=== PATIENT | female | born 1970 | race Caucasian/White ===

== ENCOUNTER → 2017-12-25 08:05 | Outpatient (CLI) | payer BC, SELFPAY ==
--- NOTE | 2017-12-25 13:13 | NEURO ---
NCS and/or EMG Patient Report Ordering Doctor: Salomón Mosquera DATE OF SERVICE: 12/25/17 This is a bilateral upper extremity nerve conduction study and a right upper extremity EMG performed on this 47-year-old female who is right-handed with a one year history of symptoms worse on the right including burning and tingling in the first 3 digit of the hand. There is no neck pain and she is healthy otherwise. Bilateral upper extremity sensory and motor nerve conduction studies are performed. The median motor and sensory distal latencies bilaterally are prolonged more so on the right, with mild reduction of amplitudes on the right side and mild bilateral reduction of conduction velocities. The ulnar motor and sensory and radial sensory responses are normal. The median F-wave latencies are bilaterally prolonged compared to the ulnar F wave latencies, worse on the right side. Right upper extremity needle electromyography is performed. Muscles evaluated included the first dorsal interosseous, abductor pollicis brevis, brachioradialis, biceps, triceps and deltoid muscles. The abductor pollicis brevis muscle did demonstrate large motor units in early recruitment but spontaneous pathologic activity was absent. All other muscles demonstrated normal insertional activity with absence of pathologic spontaneous activity. Motor unit potential recruitment pattern and amplitude was normal in all muscles tested. Impression: This is an abnormal electrophysiologic study consistent with moderate to severe carpal tunnel syndrome bilaterally at the wrists worse on the right side.
== END ==
LOC: PSN 08:07
PROVIDERS: Family Provider Family Medicine; PCP Family Medicine; Referring Provider Physician Assistant; Visit Provider Physician Assistant
DX: R20.2 Paresthesia of skin (principal)
CPT/HCPCS: 95886; 95911

== ENCOUNTER 2020-06-06 20:15 | Emergency (ER) | payer OTHER, SELFPAY ==
[2020-06-06 20:16] VITALS: BP 164/99; PULSE 89; RESP 16; TEMP 36.8; O2SAT 97; BMI 36.0
--- NOTE | 2020-06-06 20:26 | CT_ITS ---
STUDY: CT ABDOMEN AND PELVIS WITHOUT CONTRAST REASON FOR EXAM: Female, 50 years old. Rt flank pain RADIATION DOSAGE (If Supplied By Facility): CTDIvol = ( 21.14 ) mGy, DLP = ( 1034.92 ) mGycm TECHNIQUE: Transaxial images were obtained from the dome of the diaphragm to the symphysis pubis without oral contrast, and without intravenous contrast. Sagittal and coronal images were reconstructed. Individualized dose optimization techniques were used for this CT. COMPARISON: None. FINDINGS: The visualized lung bases are unremarkable. The visualized portions of the heart are within normal limits. The lack of intravenous contrast limits evaluation of solid visceral organs. There is decreased attenuation of the liver consistent with steatosis. There are surgical clips in the gallbladder fossa consistent with a prior cholecystectomy. Normal spleen. Normal pancreas. Normal bilateral adrenal glands. There is right perinephric stranding and hydronephrosis. No radiopaque obstructing calculus is visualized. Normal left kidney. Normal visualized stomach. Normal small intestine. Normal colon. The appendix is visualized and appears normal. Normal abdominal aorta. Normal inferior vena cava. Normal retroperitoneum. Normal urinary bladder. Normal abdominal wall. There are diffuse degenerative changes of the visualized lumbar spine. CT/Abdomen/Pelvis without Cont IMPRESSION: Right perinephric stranding associated with hydronephrosis, may be secondary to recent passage of a calculus, a radiolucent obstructing calculus or possibly an infectious process. Fatty infiltration of the liver. Electronically Signed: Radha Castro MD at 21:13 EDT Tel , Service support ,
--- NOTE | 2020-06-06 20:27 | ED.VIS.GEN ---
History of Present Illness Chief Complaint: Flank Pain Informant: Patient Onset: Today Current Severity: Moderate Maximum Severity: Moderate Narrative: Patient presents with right flank pain that started at 5 AM this morning. She states pain seems to come and go. It does seem worse when she pushes on her right lower back. She has vomited multiple times. She is been unable to keep down any pain medication. She states it reminds her of her gallbladder attacks but she has had a prior cholecystectomy. Past Medical History - Allergies and Home Meds Allergies/Adverse Reactions: Allergies No Known Allergies Allergy (Verified 06/06/20 20:19) Primary Care Physician: Vaibhav Carl MD [Primary Care Provider] - Past Medical History: None Surgical History: cholecystectomy, - - Cardiac ablation, carpal tunnel Lives: Spouse/ Significant Other Smoking Status: Never smoker Review of Systems General: Denies: Chills, Fever Eyes: Denies: Visual changes - bilaterally ENT: Denies: Bilateral ear pain Cardiovascular: Denies: Chest pain, Palpitations Respiratory: Denies: Dyspnea, Cough Gastrointestinal: Reports: Abdominal pain, Nausea, Vomiting Genitourinary: Denies: Dysuria Musculoskeletal: Reports: Back pain. Denies: Swelling, Extremity Pain Skin: Denies: Rash Neurological: Denies: Headache Hematologic: Denies: Easy bruising, Easy bleeding Allergy: Denies: Uticaria Physical Exam Vital Signs/Narrative: Vital Signs Temp Pulse Resp BP Pulse Ox 06/06/20 20:16 98.2 F 89 16 164/99 H 97 Inital Vital Signs reviewed: Yes General: Well nourished, Well developed Head: Normocephalic Neck: Supple Cardiovascular: Regular rate, Regular rhythm Respiratory: No distress, CTA bilaterally Abdomen: Soft, Nontender, Hypoactive bowel sounds Skin: Normal color Neurological: Alert, Oriented x3 Psychological: Normal affect Diagnostic/Tx/Re-eval Impressions Abdomen/Pelvis CT 06/06/20 20:26 IMPRESSION: Right perinephric stranding associated with hydronephrosis, may be secondary to recent passage of a calculus, a radiolucent obstructing calculus or possibly an infectious process. Fatty infiltration of the liver. Electronically Signed: Radha Castro MD at 21:13 EDT Tel , Service support , 06/06/20 20:26 Abdomen/Pelvis without Cont [CT] Stat Laboratory Results 06/06/20 06/06/20 06/06/20 20:45 20:45 20:45 WBC 10.6 RBC 4.73 Hgb 13.9 Hct 42.4 MCV 89.6 MCH 29.4 MCHC 32.8 RDW Std Deviation 45.9 H RDW Coeff of Juan Jose 14.2 Plt Count 221 MPV 12.0 Immature Gran % (Auto) 0.400 Neut % (Auto) 83.8 H Lymph % (Auto) 9.5 L [place] % (Auto) 5.9 Eos % (Auto) 0.1 Baso % (Auto) 0.3 Absolute Neuts (auto) 8.9 H Absolute Lymphs (auto) 1.00 Nucleated RBC % 0 Sodium 141 Potassium 3.7 Chloride 108 H Carbon Dioxide 23.0 Anion Gap 10 BUN 28 H Creatinine 1.06 H Estim Creat Clear Calc 62.43 Est GFR (MDRD) Af Amer 71 Est GFR (MDRD) Non-Af 59 L BUN/Creatinine Ratio 26.4 H Glucose 108 H Calcium 9.1 Total Bilirubin 0.60 Direct Bilirubin 0.17 AST 28 ALT 56 Alkaline Phosphatase 109 Total Protein 8.5 H Albumin 4.0 Globulin 4.5 H Urine Color Yellow Urine Clarity Sl. Cloudy Urine pH 5.0 Ur Specific [place] 1.025 Urine Protein 30 H Urine Glucose (UA) Normal Urine Ketones 50 H Urine Occult Blood 250 H Urine Nitrite Negative Urine Bilirubin Negative Urine Urobilinogen Normal Ur Leukocyte Esterase 25 H Urine RBC 25-50 SEEN Urine WBC 5-10 SEEN Ur Squamous Epith Cells 0-5 SEEN Amorphous Sediment 1+ URATE Urine Bacteria 0 SEEN Urine Mucus 3+ - Medical Decision Making Patient was given morphine, Toradol, Zofran, and IV fluids. On repeat evaluation pain is improved. CBC and chemistry studies largely unremarkable. Urinalysis does reveal blood with no sign of infection. CT scan reveals hydronephrosis on the right. No radiopaque stone is seen. This likely represents either a recently passed stone or a radiolucent stone. On repeat exam patient states the pressure in her right upper quadrant was starting to return. She was redosed with morphine and Zofran. Test results discussed with her at length. Patient be treated with home medications. If pain persists over the next several days she will follow-up with Dr. Bueno. She was encouraged to return to the emergency room for worsening symptoms or any concerns. Patient voices understanding and agreement. ED Disposition - Plan for ED Patient: Disposition: Home or Assisted Living Diagnosis: Ureterolithiasis Instructions: ED Kidney Stone w/ Colic Prescriptions: Hydrocodone Bitart/Apap 5-325 [[place] 5MG-325MG] 1 tablet PO Q6H PRN PRN 3 Days #10 tablet PRN Reason: Pain Ketorolac [Toradol] 10 mg PO Q6H PRN #14 tablet PRN Reason: Pain Score 4-10 Ondansetron [Zofran Odt] 4 mg PO Q8H PRN PRN #10 tablet PRN Reason: Nausea Referrals: Shay Bueno MD [STAFF PHYSICIAN] - 3-5 Days if not improving
[2020-06-06] MEDS: 0.9% Normal Saline 1,000 ML 150 ML IV (20:41)
[2020-06-06] MEDS: Ondansetron 4 MG/2 ML Vial IV ×2 (20:41→21:38)
[2020-06-06] MEDS: Morphine 4 MG/ML Syringe IV ×2 (20:41→21:38)
[2020-06-06] MEDS: Ketorolac 30 MG/ML Syringe IV (20:42)
[2020-06-06 20:53] LABS: Bacteria 0 SEEN /hpf (None Seen)
[2020-06-06 20:55] LABS: Color, Urine Yellow (Yellow); Glucose, Dipstick Normal (Normal); Ketone-Dipstick 50 mg/dl (Negative); Leukocyte Esterase-Dipstick 25 /ul (Negative); Nitrite-Dipstick Negative (Negative); Occult Blood-Urine 250 /ul (Negative); Protein-Dipstick 30 mg/dl (Negative); Specific Gravity, Urine 1.025 (1.002-1.030); Urine Bilirubin Dipstick Negative (Negative); Urine Clarity Sl. Cloudy (Clear); Urine Urobilinogen Normal (Normal)
[2020-06-06 20:57] LABS: Absolute Neutrophil Count 8.9 X10^3/uL (2.0-7.7); Basophil# 0.03 X10^3/uL; Basophil% 0.3 % (0-1); Eosinophil# 0.01 X10^3/uL; Eosinophils% 0.1 % (0-5); Hematocrit 42.4 % (37-47); Hemoglobin 13.9 g/dL (12.0-15.0); Lymphocyte % 9.5 % (19-41); Mean Corp Hgb Conc 32.8 g/dL (32-36); Mean Corpuscular Hgb 29.4 pg (27.0-32.0); Mean Corpuscular Volume 89.6 fL (81-99); Monocyte# 0.62 X10^3/uL; Monocyte% 5.9 % (0-10); NRBC Flagged by Analyzer 0 % (0-5); Neutrophil # 8.87 X10^3/uL (2.7-7.7); Neutrophil % 83.8 % (47-70); Platelet Count 221 K/mm3 (150-450); RBC Distribution Width CV 14.2 % (11.6-14.6); RBC Distribution Width SD 45.9 fl (35.1-43.9); Red Blood Count 4.73 M/mm3 (4.2-5.4); White Blood Count 10.6 K/mm3 (4.4-11.0)
[2020-06-06 21:06] LABS: Amorphous Sediment 1+ URATE; Mucous, Urine 3+ /hpf (<or=2+); Red Blood Cells-Urine 25-50 SEEN /hpf (0-5); Squamous Epithelial Cells - UA 0-5 SEEN /hpf (5-10); White Blood Cells 5-10 SEEN /hpf (0-5)
[2020-06-06 21:13] LABS: AST(SGOT) 28 U/L (15-37); Alanine Aminotransfer ALT/SGPT 56 U/L (13-56); Alkaline Phosphatase 109 U/L (45-117); Anion Gap 10 (5-15); BUN 28 mg/dL (7-18); BUN/Creat Ratio 26.4 RATIO (10-20); Bilirubin, Direct 0.17 mg/dL (0.00-0.30); Calcium,Total 9.1 mg/dL (8.5-10.1); Chloride 108 mmol/L (98-107); Creatinine, Serum 1.06 mg/dL (0.55-1.02); EST Glomerular Filtration Rate 59 mL/min (>60); Est Glom Filt Rate - Afr Amer 71 mL/min (>60); Estimated Creatinine Clearance 62.43 ml/min; Globulin 4.5 g/dL (2.2-4.2); Glucose 108 mg/dL (74-106); Potassium 3.7 mmol/L (3.5-5.1); Protein, Total 8.5 g/dL (6.4-8.2); Sodium Level 141 mmol/L (136-145)
[2020-06-06 22:26] VITALS: BP 134/72; PULSE 65; RESP 12; O2SAT 98
== END 2020-06-06 22:27 | disposition home or self-care (01) ==
PROVIDERS: Emergency Provider Emergency Medicine; PCP Family Medicine
DX: N20.1 Calculus of ureter (principal); Z90.49 Acquired absence of other specified parts of digestive tract
CPT/HCPCS: 74176; 80048; 80076; 81001; 85025; 96361; 96374; 96375; 96376; 99283; J7030; A4216; J2405

== ENCOUNTER 2023-10-22 16:16 | Inpatient (IN) | payer BC, SELFPAY ==
[2023-10-22] VITALS (7 sets, daily range): BP systolic 115–131; BP diastolic 61–85; PULSE 57–65; RESP 13–18; TEMP 36.6–36.9; O2SAT 97–100; BMI 33.4; BMI 32.2
--- NOTE | 2023-10-22 16:40 | CT_ITS ---
EXAM: CT ANGIOGRAPHY CHEST, ABDOMEN AND PELVIS WITH INTRAVENOUS CONTRAST CLINICAL INDICATION: chest/abdominal pain TECHNIQUE: Helically acquired angiography images were obtained of the chest, abdomen and pelvis with intravenous contrast. This CT exam was performed using one or more of the following dose reduction techniques: automated exposure control, adjustment of the mA and/or kV according to patient size, and/or use of iterative reconstruction technique. MIP reconstructed images were created and reviewed. CONTRAST: IV 100mL Isovue-370 COMPARISON: No relevant prior studies available. FINDINGS: VASCULATURE: AORTA: No acute findings. Normal in caliber. No dissection. PULMONARY ARTERIES: Unremarkable. Normal in caliber. No obvious central pulmonary embolism although this study was not performed with the pulmonary embolism protocol. GREAT VESSELS OF AORTIC ARCH: Unremarkable. Normal in caliber. No dissection. CELIAC TRUNK AND MESENTERIC ARTERIES: No acute findings. No occlusion or significant stenosis. No dissection. RENAL ARTERIES: No acute findings. No occlusion or significant stenosis. No dissection. ILIAC ARTERIES: No acute findings. No occlusion or significant stenosis. No dissection. CHEST: LUNGS AND PLEURAL SPACES: Unremarkable. No mass. No consolidation or edema. No pleural effusion or thickening. No pneumothorax. HEART: Unremarkable. Heart size is normal. No pericardial effusion. MEDIASTINUM: Unremarkable. No mediastinal or hilar adenopathy. Esophagus is unremarkable. No hiatal hernia. THYROID: Unremarkable. No thyroid lesions. ABDOMEN: LIVER: Unremarkable. Homogeneous. No focal mass. GALLBLADDER AND BILE DUCTS: There are surgical clips from a cholecystectomy. No intra- or extrahepatic biliary ductal dilation. PANCREAS: Unremarkable. No focal cystic or solid mass. SPLEEN: Unremarkable. Normal size without focal cystic or solid mass. ADRENALS: Unremarkable. No nodules. KIDNEYS AND URETERS: Unremarkable. Normal renal size and position. No hydronephrosis. STOMACH AND BOWEL: Unremarkable. No stomach or bowel distention. No focal inflammatory change. PELVIS: APPENDIX: No evidence of acute appendicitis. BLADDER: Unremarkable. REPRODUCTIVE: Unremarkable as visualized. No mass. CHEST, ABDOMEN and PELVIS: INTRAPERITONEAL SPACE: Unremarkable. No ascites or other fluid collection. No free air. BONES/JOINTS: Unremarkable. No suspicious lytic or blastic abnormality. SOFT TISSUES: Unremarkable. No discrete abdominal or pelvic wall hernia. LYMPH NODES: Unremarkable. No enlarged lymph nodes. CT/CTA Chst, Abd, Pel W and/or WO IMPRESSION: No acute findings in the visualized arteries of the chest, abdomen or pelvis. Electronically Signed: Mendel De Guzman MD at 17:34 EDT ,
--- NOTE | 2023-10-22 16:41 | EDS_ITS ---
HPI HPI - GI History of Present Illness Chief Complaint: Abd Pain Narrative Narrative: 53-year-old female presenting with severe epigastric pain. Patient states that she had a few episodes of this last week while she was on the phone with her and notes it did not last very long. It is not related to food. Patient has history of cholecystectomy. Patient states that she was working at the [employer] today and she would get severe pain in the epigastric region that lasted 15 minutes at a time initially. She reports 3 episodes of this where her arms went limp with the pain. She states that the last one lasted 25 minutes and again her arms went weak. Patient states she was very anxious and she might have been hyperventilating. She did feel lightheaded. PFSH PFSH Home Medications ?Medication ?Instructions ?Recorded ?Last Taken ?Type NK 10/22/23 Unknown History Allergy/AdvReac Type Severity Reaction Status Date / Time No Known Allergies Allergy Verified 10/22/23 16:18 Surgical History H/O prior ablation treatment Social History (Updated 10/22/23 @ 20:[address] Dennis Phillips DO) Smoking Status: Never smoker substance use type: marijuana ROS ROS ED Constitutional Constitutional ED: Denies chills, fever(s) or sweats Eyes Eyes: Denies blurry vision or change in vision ENT ENT ED: Denies ear pain or sore throat Cardiovascular Cardiovascular: Reports chest pain and other Details: Lightheadedness ; Denies palpitations or racing heartbeat Respiratory/Chest Respiratory/Chest: Denies cough, dyspnea or sputum Gastrointestinal Gastrointestinal: Reports abdominal pain; Denies constipation, diarrhea, nausea or vomiting Genitourinary Genitourinary ED: Denies dysuria, hematuria or urinary frequency Musculoskeletal Musculoskeletal: Denies arthralgias, myalgias or neck pain Integumentary Denies abscess, Abrasions or rash Neurologic Neurologic: Denies headache(s), paresthesias or weakness Psychiatric Psychiatric: Denies anxiety, depression, suicidal ideation or suicidal thoughts Endocrine Endocrinology: Denies polydipsia or polyuria EXAM Physical Exam Const Vital Signs: 10/22/23 16:17 10/22/23 16:27 10/22/23 17:27 Temperature 98.3 F 98.3 F 98.4 F Temperature Source Oral Oral Oral Pulse Rate 64 64 62 Respiratory Rate 16 16 13 Blood Pressure 129/77 H 129/77 H 123/74 H Blood Pressure Mean 94 94 90 Pulse Ox 99 99 100 Oxygen Delivery Method Room Air Room Air Room Air 10/22/23 18:17 10/22/23 20:00 10/22/23 20:12 Temperature 97.9 F Temperature Source Pulse Rate 60 65 61 Respiratory Rate 18 16 16 Blood Pressure 131/78 H 119/85 H 115/61 Blood Pressure Mean 95 96 79 Pulse Ox 97 100 97 Oxygen Delivery Method Room Air Room Air Positive well nourished General Appearance ED: NAD; Negative for pallor HEENT Reports moist mucous membranes normocephalic Eyes PERRL and EOMs intact bilaterally Resp normal respiratory effort and clear to auscultation bilaterally Auscultation: Negative for rales, rhonchi or wheezes Cardio regular rate and regular rhythm GI GI Narrative: Minimally tender epigastric region. Extremity General Extremety ED: Negative for edema or tenderness General Extremity: Negative for edema Neuro CN's II-XII intact bilaterally Sensorium / Orientation: alert Motor Exam: strength 5/5 throughout Psych mental status grossly normal Skin General Skin Exam: Negative for jaundice or pallor MDM MDM MDM Narrative Medical decision making narrative: Patient presenting with epigastric pain. Differential includes colitis, diverticulitis, gastritis, pancreatitis, constipation, UTI, pyelonephritis, renal calculi, ureteral calculi, bowel obstruction, malignancy, dehydration, electrolyte abnormalities, differential includes but is not limited to ACS, aortic dissection, pneumonia, pneumothorax, muscle strain, costochondritis. High-sensitivity troponin and EKG will be obtained. CBC will be obtained to assess white blood cell count, hemoglobin, platelets. CMP to assess renal function, electrolytes, liver function, glucose. Lipase to assess for pancreatitis. Urinalysis to assess for UTI. Patient was medicated with morphine and Zofran. Patient has normal white blood cell count 6.5. Hemoglobin 13.6. Platelets are normal at 181. Renal function and electrolytes within normal limits. Total bilirubin is normal however her AST is 99 ALT 63 and her lipase is 157. Previously noted these were normal. CTA of the chest abdomen pelvis was obtained and did not show anything acute. EKG interpreted by myself shows a sinus rhythm at 68 bpm without sign of ischemic change or dysrhythmia. I discussed the lab findings with Dr. Kahn and he recommended an ultrasound of the right upper quadrant to see if we could see the ducts better and this did identify a 1.6 cm dilated, bile duct. He recommended admission for MRCP. Discussed with the hospitalist. Impression: 1. Abdominal pain 2. Dilated common bile duct Lab Data Attestation: I reviewed the patient's lab results. Labs: Laboratory Results - last 24 hr 10/22/23 10/22/23 16:03 17:58 WBC 6.5 RBC 4.73 Hgb 13.6 Hct 42.0 MCV 88.8 MCH 28.8 MCHC 32.4 RDW Std Deviation 42.4 RDW Coeff of Juan Jose 13.0 Plt Count 181 MPV 12.0 Immature Gran % (Auto) 0.200 Neut % (Auto) 57.6 Lymph % (Auto) 36.0 [place] % (Auto) 4.6 Eos % (Auto) 0.8 Baso % (Auto) 0.8 Absolute Neuts (auto) 3.7 Absolute Lymphs (auto) 2.33 Nucleated RBC % 0 Sodium 139 Potassium 3.5 Chloride 109 H Carbon Dioxide 25.0 Anion Gap 5 BUN 24 H Creatinine 0.76 Estim Creat Clear Calc 103.45 Est GFR (MDRD) Af Amer 102 Est GFR (MDRD) Non-Af 84 BUN/Creatinine Ratio 31.4 H Glucose 107 H Calcium 9.2 Total Bilirubin 0.40 Direct Bilirubin 0.15 AST 99 H ALT 63 H Alkaline Phosphatase 94 Troponin I High Sens 4 5 Total Protein 8.4 H Albumin 3.9 Globulin 4.5 H Lipase 157 H Radiography Diagnostic Testing: Clinical Impression(s) from Imaging Studies Chest/Abdomen/Pelvis CTA 10/22/23 16:40 IMPRESSION: No acute findings in the visualized arteries of the chest, abdomen or pelvis. Electronically Signed: Mendel De Guzman MD at 17:34 EDT , Gallbladder Ultrasound 10/22/23 18:40 IMPRESSION: Status post cholecystectomy no acute abnormalities. Electronically Signed: Mendel De Guzman MD at 19:47 EDT , Discharge Plan Triage Chief Complaint: Abd Pain ED Provider: Kenan Yuen Dx/Rx/DC Orders Primary Care Provider: Vaibhav Carl
[2023-10-22] MEDS: 0.9% Normal Saline (1000mL) 1,000 ML 999 ML IV (16:42)
[2023-10-22] MEDS: Morphine 4 MG/ML Syringe IV ×2 (16:42→18:48)
[2023-10-22] MEDS: Ondansetron 4 MG/2 ML Vial IV (16:42)
[2023-10-22 16:54] LABS: Absolute Lymphocyte Count 2.33 X10^3/uL (0.83-4.51); Absolute Neutrophil Count 3.7 X10^3/uL (2.0-7.7); Basophil# 0.05 X10^3/uL; Basophil% 0.8 % (0-1); Eosinophil# 0.05 X10^3/uL; Eosinophils% 0.8 % (0-5); Hemoglobin 13.6 g/dL (12.0-15.0); Lymphocyte # 2.33 X10^3/ul (0.83-4.51); Mean Corp Hgb Conc 32.4 g/dL (32-36); Mean Corpuscular Hgb 28.8 pg (27.0-32.0); Mean Corpuscular Volume 88.8 fL (81-99); Monocyte% 4.6 % (0-10); NRBC Flagged by Analyzer 0 % (0-5); Neutrophil # 3.73 X10^3/uL (2.7-7.7); Neutrophil % 57.6 % (47-70); Platelet Count 181 K/mm3 (150-450); RBC Distribution Width SD 42.4 fl (35.1-43.9); Red Blood Count 4.73 M/mm3 (4.2-5.4); White Blood Count 6.5 K/mm3 (4.4-11.0)
[2023-10-22 17:01] LABS: AST(SGOT) 99 U/L (15-37); Alanine Aminotransfer ALT/SGPT 63 U/L (13-56); Albumin, Serum 3.9 g/dL (3.2-5.0); Alkaline Phosphatase 94 U/L (45-117); Anion Gap 5 (5-15); BUN 24 mg/dL (7-18); BUN/Creat Ratio 31.4 RATIO (10-20); Bilirubin, Direct 0.15 mg/dL (0.00-0.30); Calcium,Total 9.2 mg/dL (8.5-10.1); Chloride 109 mmol/L (98-107); Creatinine, Serum 0.76 mg/dL (0.55-1.02); EST Glomerular Filtration Rate 84 mL/min (>60); Est Glom Filt Rate - Afr Amer 102 mL/min (>60); Estimated Creatinine Clearance 103.45 ml/min; Globulin 4.5 g/dL (2.2-4.2); Glucose 107 mg/dL (74-106); Lipase 157 U/L (13-75); Potassium 3.5 mmol/L (3.5-5.1); Protein, Total 8.4 g/dL (6.4-8.2); Sodium Level 139 mmol/L (136-145); Troponin-I HS 4 pg/mL (3.0-54.0)
--- NOTE | 2023-10-22 18:40 | US_ITS ---
EXAM: US ABDOMEN LIMITED, RIGHT UPPER QUADRANT CLINICAL INDICATION: abominal pain TECHNIQUE: Real-time ultrasound of the right upper quadrant with image documentation. COMPARISON: No relevant prior studies available. FINDINGS: LIVER: The liver measures 15.0 cm. There is normal echotexture. No intrahepatic biliary ductal dilation. GALLBLADDER: The patient status post cholecystectomy. COMMON BILE DUCT: Common bile duct measures 1.6 cm. The proximal common bile duct is within normal limits for the patient''s age. PANCREAS: Unremarkable as visualized. No focal abnormality is demonstrated in the pancreas. No pancreatic ductal dilatation. RIGHT KIDNEY: Right kidney measures 11.1 x 5.3 x 5.1 cm. There is no hydronephrosis. No shadowing calculus. No focal lesion or perinephric collection is demonstrated. US/Gallbladder IMPRESSION: Status post cholecystectomy no acute abnormalities. Electronically Signed: Mendel De Guzman MD at 19:47 EDT ,
[2023-10-22 19:36] LABS: Troponin-I HS 5 pg/mL (3.0-54.0)
--- NOTE | 2023-10-22 20:51 | HP.PCM.HOS_ITS ---
HPI - General General Date of Service: 10/22/23 Chief Complaint: Abdominal pain HPI Narrative CHERYL STEARNS, is a 53 F who presents with abdominal pain. 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 Had 3 [id number] to back episodes. And patient which is having very severe pain, felt her arms go numb though she is not having any chest pain. Feels similar to when the past when she had a gallbladder attack. That was in 2006 where she apparently had acute cholecystitis and stones in her bile duct. She presented here for her symptoms which her workup here was unremarkable. Ultrasound showed her common bile duct was 1.6 cm. The ER physician spoke with Dr. Martinez stated that seem to be larger than would be anticipated in someone that is post cholecystectomy. Patient describes when she was having her abdominal pain that her abdomen was distended since improved though still has some slight epigastric pain at this time. States that she gets periodic pain about once a month over the past year but usually resolves on its own without any further issues. PFSH Home Medications ?Medication ?Instructions ?Recorded ?Last Taken ?Type NK 10/22/23 Unknown History Allergy/AdvReac Type Severity Reaction Status Date / Time No Known Allergies Allergy Verified 10/22/23 16:18 Surgical History H/O prior ablation treatment Social History (Updated 10/22/23 @ 20:[address] Dennis Phillips DO) Smoking Status: Never smoker substance use type: marijuana ROS ROS Narrative Please uses marijuana Gummies to help her sleep. All review of systems were negative except as mentioned above in the history of present illness and the other review of systems. Vital Signs Vital Signs Vital Signs: 10/22/23 16:17 10/22/23 16:27 10/22/23 17:27 Temperature 36.8 C 36.8 C 36.9 C Temperature Source Oral Oral Oral Pulse Rate 64 64 62 Respiratory Rate 16 16 13 Blood Pressure 129/77 H 129/77 H 123/74 H Blood Pressure Mean 94 94 90 Pulse Ox 99 99 100 Oxygen Delivery Method Room Air Room Air Room Air 10/22/23 18:17 10/22/23 20:00 10/22/23 20:12 Temperature 36.6 C Temperature Source Pulse Rate 60 65 61 Respiratory Rate 18 16 16 Blood Pressure 131/78 H 119/85 H 115/61 Blood Pressure Mean 95 96 79 Pulse Ox 97 100 97 Oxygen Delivery Method Room Air Room Air Weight Weight: 96.8 kg Body Mass Index (BMI) 33.4 Physical Exam Narrative - Physical Exam General: Alert, Oriented x3, Cooperative HEENT: Atraumatic, PERRLA, EOMI, Normocephalic Oral: Moist Mucosa, No Gingival or Mucosal Lesions/ Ulcerations Neck: Supple, No JVD, Negative Carotid Bruits Lungs: Clear to auscultation, Normal air movement Cardiovascular: Regular rate, Normal S1, Normal S2, No murmurs Abdomen: Bowel Sounds Present, Soft, slight midepigastric tenderness., Non- Distended, No Hepato-splenomegaly Extremities: No clubbing, No cyanosis, No edema, Capillary Refill Less than 3 Seconds Skin: No rashes, No breakdown Musculoskeletal: No Tenderness to Palpation of Joints or Extremities Neurological: Neuro grossly intact Psych/Mental Status: Normal Affect, Appropriate Results Lab / Micro Data Attestation: I reviewed the patient's lab results. 10/22/23 16:03 10/22/23 16:03 Labs: Laboratory Results - last 24 hr 10/22/23 16:03: WBC 6.5, RBC 4.73, Hgb 13.6, Hct 42.0, MCV 88.8, MCH 28.8, MCHC 32.4, RDW Std Deviation 42.4, RDW Coeff of Juan Jose 13.0, Plt Count 181, MPV 12.0, Immature Gran % (Auto) 0.200, Neut % (Auto) 57.6, Lymph % (Auto) 36.0, [place] % (Auto) 4.6, Eos % (Auto) 0.8, Baso % (Auto) 0.8, Absolute Neuts (auto) 3.7, Absolute Lymphs (auto) 2.33, Nucleated RBC % 0, Sodium 139, Potassium 3.5, C hloride 109 H, Carbon Dioxide 25.0, Anion Gap 5, BUN 24 H, Creatinine 0.76, Estim Creat Clear Calc 103.45, Est GFR (MDRD) Af Amer 102, Est GFR (MDRD) Non-Af 84, BUN/Creatinine Ratio 31.4 H, Glucose 107 H, Calcium 9.2, Total Bilirubin 0.40, Direct Bilirubin 0.15, AST 99 H, ALT 63 H, Alkaline Phosphatase 94, Troponin I High Sens 4, Total Protein 8.4 H, Albumin 3.9, Globulin 4.5 H, Lipase 157 H 10/22/23 17:58: Troponin I High Sens 5 EKG Initial EKG: EKG Rhythm Intrepretation: Sinus Rhythm Imaging Radiology Impression Chest/Abdomen/Pelvis CTA 10/22/23 16:40 IMPRESSION: No acute findings in the visualized arteries of the chest, abdomen or pelvis. Electronically Signed: Mendel De Guzman MD at 17:34 EDT , Gallbladder Ultrasound 10/22/23 18:40 IMPRESSION: Status post cholecystectomy no acute abnormalities. Electronically Signed: Mendel De Guzman MD at 19:47 EDT , Assessment & Plan Assessment/Plan (1) Abdominal pain: PLAN: Plan Abdominal pain * Transient resolved but patient had very intense episodes that were back to back to back. Patient's ultrasound shows a large common bile duct measuring 1.6 cm. Unclear if patient passed a stone or if she may have had a transient partial small bowel obstruction or ileus as she was having abdominal distention. Symptoms are resolved and there is no clear source of her abdominal pain at this time. The ED did reach out to gastroenterology who recommended bring the patient in for further evaluation. * Plan: Consult GI to see if patient would be a candidate for an ERCP. Not going to order any additional studies at this time unless patient does have recurrence of her symptoms and probably doing a CAT scan would be the next course of action. She will have as needed medications but currently she is very comfortable. Should be on clear liquid diet for the time being. History of cardiac ablation * Asked patient if she had a history of A-fib or SVT, she says she was unsure but does not provide any other issues since then. No additional workup at this time. VTE prophylaxis: Low risk. Charges/Coding Visit Charges Inpatient E&M: 01699 Init Hosp L2
--- NOTE | 2023-10-22 21:20 | ED.RN ---
Report verbally given to RN on Medsurg 3
[2023-10-23] VITALS (11 sets, daily range): BP systolic 111–152; BP diastolic 65–79; PULSE 54–67; RESP 16–18; TEMP 36.1–36.9; O2SAT 97–100
[2023-10-23 07:49] LABS: ALB/GLOB Ratio 0.9 RATIO (0.9-2.4); AST(SGOT) 1357 U/L (15-37); Alanine Aminotransfer ALT/SGPT 1200 U/L (13-56); Albumin, Serum 3.3 g/dL (3.2-5.0); Alkaline Phosphatase 177 U/L (45-117); Anion Gap 6 (5-15); BUN 20 mg/dL (7-18); BUN/Creat Ratio 29.4 RATIO (10-20); Calcium,Total 9.5 mg/dL (8.5-10.1); Chloride 108 mmol/L (98-107); Creatinine, Serum 0.68 mg/dL (0.55-1.02); EST Glomerular Filtration Rate 96 mL/min (>60); Est Glom Filt Rate - Afr Amer 116 mL/min (>60); Estimated Creatinine Clearance 113.54 ml/min; Globulin 3.7 g/dL (2.2-4.2); Glucose 102 mg/dL (74-106); Potassium 3.7 mmol/L (3.5-5.1); Sodium Level 140 mmol/L (136-145)
--- NOTE | 2023-10-23 09:25 | EX.PCM.CON.G ---
HPI Consult Data Date of Consult: 10/23/23 HPI Narrative Reason for Consultation: cholestatic jaundice and acute hepatitis HPI Narrative: CHERYL STEARNS, is a 53-year-old female presented with severe epigastric pain. Patient states that she had a few episodes of this last week while she was on the phone with her and notes it did not last very long. It is not related to food. Patient has history of cholecystectomy. Patient states that she was working at the [employer] today and she would get severe pain in the epigastric region that lasted 15 minutes at a time initially. She reports 3 episodes of this where her arms went limp with the pain. She states that the last one lasted 25 minutes and again her arms went weak. Patient states she was very anxious and she might have been hyperventilating. She did feel lightheaded. [facility] Home Medications ?Medication ?Instructions ?Recorded ?Last Taken ?Type NK 10/22/23 Unknown History Allergy/AdvReac Type Severity Reaction Status Date / Time No Known Allergies Allergy Verified 10/22/23 16:18 Surgical History H/O prior ablation treatment Social History Smoking Status: Never smoker substance use type: marijuana ROS Review of Systems ROS Unobtainable: other Constitutional Constitutional: Denies fatigue, fever(s), poor appetite, weight gain or weight loss ENT HEENT: Denies mouth lesions Cardiovascular Cardiovascular: Denies abdominal bloating, abdominal edema or abdominal pain Respiratory/Chest Respiratory/Chest: Denies change in mental status, change in phlegm color, chest congestion or chest tightness Gastrointestinal Gastrointestinal: Denies belching, bloating, change in bowel habits, change in stool character, chewing difficulty, coffee ground emesis, constipation, cramping, diarrhea, dyspepsia, dysphagia, early satiety, excessive flatus, fecal incontinence, heartburn, hematemesis, hematochezia, hemorrhoids, loose stools, melena, nausea, odynophagia, rectal bleeding, tenesmus, vomiting or weight changes Genitourinary Genitourinary: Denies abdominal discomfort, burning urination or itching Musculoskeletal Musculoskeletal: Reports as per HPI; Denies muscle weakness or myalgias Integumentary Integumentary: Denies jaundice Neurologic Neurologic: Denies lack of coordination or weakness Psychiatric Psychiatric: Denies confusion, depression, memory loss, mood swings, paranoia or suicidal ideation Endocrine Endocrinology: Denies systems reviewed and no addt'l complaints, except as documented Hematologic/Lymphatic Hematologic/Lymphatic: Denies anemia, easy bleeding, easy bruising or lymphadenopathy Allergic/Immunologic Allergic/Immunologic: Denies systems reviewed and no addt'l complaints, except as documented Physical Exam Const alert, oriented x3, no apparent distress and healthy appearing General Appearance: cooperative, well kempt and well developed Orientation / Consciousness: awake, oriented to person, oriented to place and oriented to time HEENT normocephalic, head/scalp atraumatic and moist oral mucous membranes Eyes PERRL, EOMs intact bilaterally and conjunctivae normal Neck supple, no JVD, thyroid normal and no carotid bruits General: trachea midline Resp normal respiratory effort and clear to auscultation bilaterally Auscultation: Negative for rales, rhonchi or wheezes Cardio regular rate, regular rhythm, S1 normal heart sound, S2 normal heart sound, no murmurs, no rub and no gallops GI normal to inspection, nondistended, normoactive bowel sounds, soft to palpation, non-tender and non-distended Extremity no clubbing, cyanosis or edema Skin no rashes or lesions noted General Skin Exam: no breakdown Neuro oriented x3, CN's II-XII intact bilaterally, moves all extremities, no focal motor deficits and no sensory deficits noted Sensorium / Orientation: awake and alert Speech: speech normal Psych affect normal Lab / Micro Data 10/22/23 16:03 10/23/23 05:53 Labs: Laboratory Results - last 24 hr 10/22/23 16:03: WBC 6.5, RBC 4.73, Hgb 13.6, Hct 42.0, MCV 88.8, MCH 28.8, MCHC 32.4, RDW Std Deviation 42.4, RDW Coeff of Juan Jose 13.0, Plt Count 181, MPV 12.0, Immature Gran % (Auto) 0.200, Neut % (Auto) 57.6, Lymph % (Auto) 36.0, [place] % (Auto) 4.6, Eos % (Auto) 0.8, Baso % (Auto) 0.8, Absolute Neuts (auto) 3.7, Absolute Lymphs (auto) 2.33, Nucleated RBC % 0, Sodium 139, Potassium 3.5, Chloride 109 H, Carbon Dioxide 25.0, Anion Gap 5, BUN 24 H, Creatinine 0.76, Estim Creat Clear Calc 103.45, Est GFR (MDRD) Af Amer 102, Est GFR (MDRD) Non-Af 84, BUN/Creatinine Ratio 31.4 H, Glucose 107 H, Calcium 9.2, Total Bilirubin 0.40, Direct Bilirubin 0.15, AST 99 H, ALT 63 H, Alkaline Phosphatase 94, Troponin I High Sens 4, Total Protein 8.4 H, Albumin 3.9, Globulin 4.5 H, Lipase 157 H 10/22/23 17:58: Troponin I High Sens 5 10/23/23 05:53: Sodium 140, Potassium 3.7, Chloride 108 H, Carbon Dioxide 26.0, Anion Gap 6, BUN 20 H, Creatinine 0.68, Estim Creat Clear Calc 113.54, Est GFR (MDRD) Af Amer 116, Est GFR (MDRD) Non-Af 96, BUN/Creatinine Ratio 29.4 H, Glucose 102, Calcium 9.5, Total Bilirubin 1.20 H, AST 1357 H, ALT 1200 H, Alkaline Phosphatase 177 H, Total Protein 7.0, Albumin 3.3, Globulin 3.7, Albumin/Globulin Ratio 0.9 Imaging Radiology Impression Chest/Abdomen/Pelvis CTA 10/22/23 16:40 IMPRESSION: No acute findings in the visualized arteries of the chest, abdomen or pelvis. Electronically Signed: Mendel De Guzman MD at 17:34 EDT , Gallbladder Ultrasound 10/22/23 18:40 IMPRESSION: Status post cholecystectomy no acute abnormalities. Electronically Signed: Mendel De Guzman MD at 19:47 EDT , Assessment & Plan Assessment/Plan (1) Cholestatic jaundice: PLAN: 53 yo with ruq pain and discovered to have increased AST and ALT with elevated Bilirubin. DD: choledocholithiasis (increases the likelihood with pancreatitis), ischemic hepatitis, medication induced injury, SOD type 1. She will under ERCP with likely sphincterotomy. Charges/Coding Visit Charges Inpatient E&M: 70544 Init Hosp L3
[2023-10-23 12:16] LABS: Internal QC Validated? YES +Cl - CLEAR BKGD; Pregnancy, Urine Negative Negative
--- NOTE | 2023-10-23 13:33 | PN.HOSP_ITS ---
Reason for Visit Reason for Visit: Diagnoses Unspecified abdominal pain (10/22/23) Subjective Subjective Patient was seen and examined today, she does not complain of any abdominal pain. It appears that she will be undergoing an ERCP today. Objective Data Objective Data Vital Signs: Vital Signs Temp Pulse Resp BP Pulse Ox O2 Del Method 98.3 F 54 L 16 115/65 100 Room Air 10/23/23 08:37 10/23/23 08:37 10/23/23 08:37 10/23/23 08:37 10/23/23 08:37 10/23/23 08:37 Oxygen Delivery Method Room Air Weight: 93.4 kg Body Mass Index (BMI) 32.2 Intake & Output: Intake and Output for Last 24 Hours 10/21/23 10/22/23 10/23/23 23:59 23:59 23:59 Intake Total 1000 / 1150 150 / 150 Balance 1000 / 1150 150 / 150 Lab / Micro Data 10/22/23 16:03 10/23/23 05:53 Labs: Laboratory Results - last 24 hr 10/22/23 16:03: WBC 6.5, RBC 4.73, Hgb 13.6, Hct 42.0, MCV 88.8, MCH 28.8, MCHC 32.4, RDW Std Deviation 42.4, RDW Coeff of Juan Jose 13.0, Plt Count 181, MPV 12.0, Immature Gran % (Auto) 0.200, Neut % (Auto) 57.6, Lymph % (Auto) 36.0, [place] % (Auto) 4.6, Eos % (Auto) 0.8, Baso % (Auto) 0.8, Absolute Neuts (auto) 3.7, Absolute Lymphs (auto) 2.33, Nucleated RBC % 0, Sodium 139, Potassium 3.5, C hloride 109 H, Carbon Dioxide 25.0, Anion Gap 5, BUN 24 H, Creatinine 0.76, Estim Creat Clear Calc 103.45, Est GFR (MDRD) Af Amer 102, Est GFR (MDRD) Non-Af 84, BUN/Creatinine Ratio 31.4 H, Glucose 107 H, Calcium 9.2, Total Bilirubin 0.40, Direct Bilirubin 0.15, AST 99 H, ALT 63 H, Alkaline Phosphatase 94, Troponin I High Sens 4, Total Protein 8.4 H, Albumin 3.9, Globulin 4.5 H, Lipase 157 H 10/22/23 17:58: Troponin I High Sens 5 10/23/23 05:53: Sodium 140, Potassium 3.7, Chloride 108 H, Carbon Dioxide 26.0, Anion Gap 6, BUN 20 H, Creatinine 0.68, Estim Creat Clear Calc 113.54, Est GFR (MDRD) Af Amer 116, Est GFR (MDRD) Non-Af 96, BUN/Creatinine Ratio 29.4 H, Glucose 102, Calcium 9.5, Total Bilirubin 1.20 H, AST 1357 H, ALT 1200 H, A lkaline Phosphatase 177 H, Total Protein 7.0, Albumin 3.3, Globulin 3.7, Albumin/Globulin Ratio 0.9 10/23/23 11:45: Urine Test Negative Radiography Diagnostic Testing: Radiology Impression Chest/Abdomen/Pelvis CTA 10/22/23 16:40 IMPRESSION: No acute findings in the visualized arteries of the chest, abdomen or pelvis. Electronically Signed: Mendel De Guzman MD at 17:34 EDT , Gallbladder Ultrasound 10/22/23 18:40 IMPRESSION: Status post cholecystectomy no acute abnormalities. Electronically Signed: Mendel De Guzman MD at 19:47 EDT , Physical Exam Const alert, oriented x3, no apparent distress and healthy appearing General Appearance: cooperative, well kempt and well developed Orientation / Consciousness: awake, oriented to person, oriented to place and oriented to time HEENT normocephalic, head/scalp atraumatic and moist oral mucous membranes Eyes PERRL, EOMs intact bilaterally and conjunctivae normal Neck supple, no JVD, thyroid normal and no carotid bruits General: trachea midline Resp normal respiratory effort and clear to auscultation bilaterally Auscultation: Negative for rales, rhonchi or wheezes Cardio regular rate, regular rhythm, S1 normal heart sound, S2 normal heart sound, no murmurs, no rub and no gallops GI normal to inspection, nondistended, normoactive bowel sounds, soft to palpation, non-tender and non-distended Extremity no clubbing, cyanosis or edema Skin no rashes or lesions noted General Skin Exam: no breakdown Neuro oriented x3, CN's II-XII intact bilaterally, moves all extremities, no focal motor deficits and no sensory deficits noted Sensorium / Orientation: awake and alert Speech: speech normal Psych affect normal Assessment & Plan Assessment/Plan (1) Abdominal pain: PLAN: Plan 1. Abdominal pain-resolved at this time, workup will continue including an ERCP, gastroenterology is participating in her care #2 dilated common bile duct-indicative of probable stone, again patient will undergo an ERCP, gastroenterology is participating in her care #3 cholestatic liver enzyme elevations-again this is probably secondary to bile duct obstruction which is either ongoing or has resolved Total clinical time spent by myself addressing the patient's medical issues, reviewing her data, and collaborating with patient's care team: 35 minutes Charges/Coding Visit Charges Inpatient E&M: 49411 Subs Hosp L2
--- NOTE | 2023-10-23 14:38 | CHAPLAIN ---
Type of Pastoral Visit _x__ Initial Visit ___ Follow-up Visit ___ On-call Visit ___ General Patient Visit ___ Spiritual Assessment ___ Family Conference ___ Bereavement ___ Rapid Response ___ Code Blue ___ Other (describe below) Pastoral Care Referral From _x__ Patient ___ Family ___ Nurse ___ Physician ___ Ui Software Engineer ___ Deli Worker ___ Other (describe below) Sacrament/Intervention _x__ Active listening ___ Anointing ___ Worship ___ Bereavement ___ Communion _x__ Neha exploration ___ ___ Life review _x__ Prayer ___ Reconciliation ___ Sacrament of Sick ___ Supportive presence ___ Wedding ___ Other (describe below) Pastoral Comments patient gives enthusiastic greeting to this strike plate attacher and states that she wants a prayer before her procedure for this afternoon; pt explains her health need and unplanned trip to the hospital; pt expresses her neha in God and belief in His care; pt expresses thankfulness for a strike plate attacher being present in the hospital; spouse is also with the patient for support at this time
--- NOTE | 2023-10-23 16:29 | PRE.ANES_ITS ---
ASA Classification* ASA Classification ASA Classification: 3 and E Assessment & Plan Anesthesia* Anesthesia Assessment Anesthesia Assessment: Discussed sedation and/or anesthesia options, risks, benefits, and alternatives with patient/parents/legal guardian/POA. Questions invited. The patient/parents/legal guardian/POA seems to understand and agrees to proceed with anesthesia plan. Reviewed the physical assessment, medical history, allergy history and patient home medications list prior to surgery/procedure/anesthetic and documented any changes. Performed airway and anesthesia risk assessments. Anesthesia Type Anesthesia Type: General History Source History Obtained from:: Patient and Chart Anesthesia Focused Assessment* Temperature: 97.9 F Pulse Rate: 62 Blood Pressure: 111/74 Respiratory Rate: 16 Pulse Ox: 100 Oxygen Delivery Method: Room Air Airway Assessment Mouth opens: >3 cm Mallampati Score: III Teeth Condition: Caps/Crowns (Right upper molar has a crown. Another crown on the left upper molar. Both are tight.) Neck Range of motion (ROM): Full ROM Pertinent Findings EKG Pertinent Findings:: October 22, 2023. Sinus rhythm with sinus arrhythmia with occasional premature ventricular complexes. Focused Labs Anesthesia Preop lab: CBC WBC 6.5 K/mm3 (4.4-11.0) 10/22/23 16:03 RBC 4.73 M/mm3 (4.2-5.4) 10/22/23 16:03 Hgb 13.6 g/dL (12.0-15.0) 10/22/23 16:03 Hct 42.0 % (37-47) 10/22/23 16:03 Plt Count 181 K/mm3 (150-450) 10/22/23 16:03 CHEMISTRY Potassium 3.7 mmol/L (3.5-5.1) 10/23/23 05:53 Sodium 140 mmol/L (136-145) 10/23/23 05:53 BUN 20 mg/dL (7-18) H 10/23/23 05:53 Creatinine 0.68 mg/dL (0.55-1.02) 10/23/23 05:53 Glucose 102 mg/dL (74-106) 10/23/23 05:53 COAG Urine Test Negative Negative 10/23/23 11:45 Pre-Assessment Diagnosis/Proposed Procedure Planned Operative Procedure(s): ERCP Anesthesia History 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 When Was Last Pacemaker Check QUESTION #4 FULL TEXT: You/Your Family Experience fever (hyperthermia) with Anesthesia Last Oral Intake Last Oral intake: Last Oral Intake NPO since Meds taken in AM with sips of water? 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 Female HX of Motion Sickness HX of N/V After Surgery Non-Smoker Duration of Surgery greater than 60 minutes Number of Risk Factors PONV Score Height & Weight Height & Weight: Anesthesia: Height & Weight Height 5 ft 7 in 10/22/23 21:34 Weight: 93.4 kg 10/22/23 21:34 Body Mass Index (BMI) 32.2 10/22/23 21:34 Respiratory Assessment Respiratory Assessment - supervisor mold cleaning and storage: Respiratory Tract Infection Hx - supervisor mold cleaning and storage Hx Respiratory Tract Infection Any additional information?: Yes Hx Respiratory Tract Infection: No STOP Sleep Apnea STOP Sleep Apnea - supervisor mold cleaning and storage: STOP Sleep Apnea - supervisor mold cleaning and storage Hx Hypertension No 10/22/23 21:34 Hx Sleep Apnea No 10/22/23 21:34 CPAP BIPAP Do you snore loudly (louder No 10/22/23 21:34 than talking or can be heard Do you often feel tired/ No 10/22/23 21:34 fatigued/ sleepy during daytime? Has anyone observed you stop No 10/22/23 21:34 breathing during sleep? STOP Results Negative 10/22/23 21:34 QUESTION #5 FULL TEXT : Do you snore loudly (louder than talking or can be heard through closed doors)? 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 Specify any problems Hx of Preganancy in last 3 No 10/22/23 21:34 Months Nurse Filling Out Transfusion [id number] 10/22/23 21:34 & Questions: Date: 10/22/23 10/22/23 21:34 Time: 22:35 10/22/23 21:34 Patient unable to answer at this time (ie. confused, unrespo /Reproduction History /Reproductive History - supervisor mold cleaning and storage: /Reproductive Hx- supervisor mold cleaning and storage Hx Now Gestational Age (in weeks): EDC: Hx Hx Para Hx Section SAB Active Medications Active Medications: Current Medications Generic Name Dose Route Start Last Admin Trade Name Freq PRN Reason Stop Dose Admin Acetaminophen 650 mg 10/22/23 21:34 Acetaminophen 325 Mg Tablet PO Q6H PRN PRN Pain 1-10 Or Fever >100.7 Ibuprofen 600 mg 10/22/23 21:34 Ibuprofen 600 Mg Tablet PO Q6H PRN PRN Pain Score 1-10 Morphine Sulfate 2 - 4 mg 10/22/23 21:34 Morphine 2 Mg/Ml Syringe IV Q3H PRN PRN Pain Score 6-10 Ondansetron HCl 4 mg 10/22/23 21:34 Ondansetron 4 Mg/2 Ml Vial IV Q8H PRN PRN NAUSEA/VOMITING Oxycodone HCl 5 mg 10/22/23 21:34 Oxycodone 5 Mg Tablet PO Q4H PRN PRN Pain Score 4-10 Prochlorperazine Edisylate 5 mg 10/22/23 21:34 Prochlorperazine 10 Mg/2 Ml Vial IV Q4H PRN PRN Breakthrough nausea/vomiting PFSH Home Medications ?Medication ?Instructions ?Recorded ?Last Taken ?Type NK 10/22/23 Unknown History Allergy/AdvReac Type Severity Reaction Status Date / Time No Known Allergies Allergy Verified 10/22/23 16:18 Surgical History H/O prior ablation treatment Social History Smoking Status: Never smoker substance use type: marijuana Review of Systems (Anesthesia) ROS Narrative System reviewed and no additional complaints, except as documented.
[2023-10-23] MEDS: Lactated Ringers 1,000 ML 15 ML IV (16:31)
--- NOTE | 2023-10-23 16:45 | FLU_PTH ---
PATIENT: CHERYL STEARNS LOC: [facility] U#:[id number] AGE/SX: 53/F ROOM: NV316 RE10/23/[address]: Dr. Michael Hill DO : 1970 BED: 1 DIS: 10/24/2023 SPEC #: [id number] RECD: 10/23/23 19:05 STATUS: ANITA GOMEZ #: [id number] TALITA: 10/23/23 16:[address]: Michael Hill DEPT: CYTOLOGY RECD BY: Margaret Doshi ENTERED: 10/24/23 08:08 SP TYPE: Fluid OTHR DR: MD Dr. Dennis Seaman DO Tissues: A - Bile duct, NOS B - Bile duct, NOS Procedures: Special Stain Group II Surgery Specimen Level IV Cytospin Fluid Cytology Other HEADER OPERATION: ERCP with brushings and stent placement PRE-OP DIAGNOSIS: Cholestatic jaundice TISSUE SUBMITTED: A- Jelm tip fluid, B- Common bile duct brushings slides DIAGNOSIS CYTOLOGY A. Jelm tip fluid for cytology (cytospin and cellblock): Negative for malignant cells. B. Common bile duct brushings (smears): Negative for malignant cells. MARY JO/ 10/25/2023 COMMENT Correlation with clinical findings and appropriate follow up are necessary. CYTOLOGY STUDY Slides are reviewed. CYTOLOGY GROSS A. Received is 0.2 ml of yellow-cloudy fluid labeled with the patient's name and and designated per the requisition as Jelm tip. Submitted for cytology preparation including cell block. B. Received are 3 smears labeled with the patient's name and designated per the requisition as Common bile duct brushing. Submitted for staining. Mr 10/24/2023 TC:5 CPT: 58238,51555,59537
--- NOTE | 2023-10-23 18:23 | RAD_ITS ---
Fluoroscopic guided ERCP with stent placement Indication: Right upper quadrant pain TECHNIQUE: Utilizing fluoroscopic guidance ERCP was performed in usual fashion followed by stent placement by attending starter mechanic. 61.4 seconds of fluoroscopic time were utilized during the study FINDINGS: 7 fluoroscopic guided images were obtained in the anterior projection to document findings during the study. Concern for more information would recommend correlation with procedural notes. RAD/ERCP Biliary/Pancreas IMPRESSION: Fluoroscopic guided ERCP with stent placement Electronically Signed: Abimale Guy MD at 22:52 EDT ,
--- NOTE | 2023-10-23 19:00 | OP.ERCP_ITS ---
Patient Name: Casi Sutherland Procedure Date: 10/23/2023 5:48 PM Date of : 1970 Age: 53 Procedure: ERCP Indications: Jaundice, Elevated liver enzymes, Acute pancreatitis Providers: Prosper Kahn DO Medicines: Monitored Anesthesia Care Patient Profile: This is a 53 year old female. Refer to note in patient chart for documentation of history and physical. Patient has symptoms of acute right upper quadrant abdominal pain and acute jaundice. Complications: No immediate complications. Procedure: Pre-Anesthesia Assessment: - Prior to the procedure, a History and Physical was performed, and patient medications and allergies were reviewed. The patient is competent. The risks and benefits of the procedure and the sedation options and risks were discussed with the patient. All questions were answered and informed consent was obtained. Patient identification and proposed procedure were verified by the physician in the pre-procedure area. Mental Status Examination: alert and oriented. Airway Examination: normal oropharyngeal airway and neck mobility. Respiratory Examination: clear to auscultation. CV Examination: normal. Prophylactic Antibiotics: The patient does not require prophylactic antibiotics. Prior Anticoagulants: The patient has taken no anticoagulant or antiplatelet agents except for NSAID medication. ASA Grade Assessment: II - A patient with mild systemic disease. After reviewing the risks and benefits, the patient was deemed in satisfactory condition to undergo the procedure. The anesthesia plan was to use monitored anesthesia care (MAC). Immediately prior to administration of medications, the patient was re-assessed for adequacy to receive sedatives. The heart rate, respiratory rate, oxygen saturations, blood pressure, adequacy of pulmonary ventilation, and response to care were monitored throughout the procedure. The physical status of the patient was re-assessed after the procedure. After obtaining informed consent, the scope was passed under direct vision. Throughout the procedure, the patient's blood pressure, pulse, and oxygen saturations were monitored continuously. The Duodenoscope was introduced through the mouth, and advanced to the duodenum and used to cannulate the bile duct. The ERCP was accomplished without difficulty. The patient tolerated the procedure well. Scope In: 6:26:09 PM Scope Out: 6:46:08 PM Total Procedure Duration Time 0 hours 19 minutes 59 seconds Findings: The licensed clinician film was normal. The esophagus was successfully intubated under direct vision. The scope was advanced to a normal major papilla in the descending duodenum without detailed examination of the pharynx, larynx and associated structures, and upper GI tract. The upper GI tract was grossly normal. The bile duct was deeply cannulated with the short-nosed traction sphincterotome. Contrast was injected. I personally interpreted the bile duct images. There was brisk flow of contrast through the ducts. Image quality was adequate. Contrast extended to the entire biliary tree. Opacification of the main bile duct was successful. The maximum diameter of the ducts was 16 mm. The lower third of the main bile duct contained a single localized stenosis 6 mm in length. The entire opacified area was markedly dilated, secondary to a stricture. The largest diameter was 16 mm. A cholecystectomy had been performed. A straight Roadrunner wire was passed into the biliary tree. A 5 mm biliary sphincterotomy was made with a traction (standard) sphincterotome using ERBE electrocautery. There was no post-sphincterotomy bleeding. The biliary tree was swept with a 12 mm balloon starting at the bifurcation. All stones were removed. Cells for cytology were obtained by brushing in the lower third of the main bile duct. One 10 Fr by 5 cm temporary stent was placed 5 cm into the common bile duct. Bile flowed through the stent. The stent was in good position. Impression: - A single localized biliary stricture was found in the lower third of the main bile duct. The stricture was indeterminate. - The biliary system were markedly dilated, secondary to a stricture. - The patient has had a cholecystectomy. - Choledocholithiasis was found. Complete removal was accomplished by biliary sphincterotomy and balloon extraction. - A biliary sphincterotomy was performed. - The biliary tree was swept. - Cells for cytology obtained in the lower third of the main duct. - One temporary stent was placed into the common bile duct. Procedure Code(s): --- Professional --- 64042, Endoscopic retrograde cholangiopancreatography (ERCP); with placement of endoscopic stent into biliary or pancreatic duct, including pre- and post-dilation and guide wire passage, when performed, including sphincterotomy, when performed, each stent 07663, Endoscopic retrograde cholangiopancreatography (ERCP); with removal of calculi/debris from biliary/pancreatic duct(s) 50274, 26, Endoscopic catheterization of the biliary ductal system, radiological supervision and interpretation CPT copyright 2021 [employer]. All rights reserved. The codes documented in this report are preliminary and upon field crop farmer review may be revised to meet current compliance requirements. Prosper Kahn DO 10/23/2023 7:00:12 PM This report has been signed electronically. Number of Addenda: 0 Note Initiated On: 10/23/2023 5:48 PM
--- NOTE | 2023-10-23 19:00 | OP.CCLET_ITS ---
10/23/2023 Vaibhav Carl Re : ERCP procedure for Casi Sutherland Dear Siddhartha This procedure was performed on Monday, October 23, 2023. My impressions and recommendations are as follows: Impressions : - A single localized biliary stricture was found in the lower third of the main bile duct. The stricture was indeterminate. - The biliary system were markedly dilated, secondary to a stricture. - The patient has had a cholecystectomy. - Choledocholithiasis was found. Complete removal was accomplished by biliary sphincterotomy and balloon extraction. - A biliary sphincterotomy was performed. - The biliary tree was swept. - Cells for cytology obtained in the lower third of the main duct. - One temporary stent was placed into the common bile duct. Recommendations : My findings are described in the full procedure note, which is enclosed. If I can be of further assistance, please feel free to contact me at . Sincerely, Prosper Kahn, 10/23/2023 7:00:12 PM This report has been signed electronically.
--- NOTE | 2023-10-23 19:13 | PCM.POST.ANE ---
Anesthesia: Postop Eval I Current Vital Signs Temperature: 97.3 F Pulse Rate: 60 Blood Pressure: 127/77 Respiratory Rate: 16 Pulse Ox: 97 Oxygen Delivery Method: Room Air Assessment Airway patent: Yes Spontaneous unlabored respirations: Yes Mental status: Awake and Calm nausea: No Vomiting: No Anesthesia Complication: No Fluid Hydration Crystalloid volume administer (ml): 800 Total IV fluid infused: 800 Progress Note Anesthesia document: Postop Eval 1 completed: Yes
--- NOTE | 2023-10-23 19:32 | PCM.POSTANE2 ---
Anesthesia Postop Eval I Sum Postop Eval Completion status Anesthesia document: Postop Eval 1 completed: Yes Anesthesia Postop Eval I Summary Anesthesia Postop Eval I Summary: Anesthesia Postop Eval I: Assessment Summary Airway patent Yes 10/23/23 19:14 Spontaneous unlabored Yes 10/23/23 19:14 respirations Mental status Awake,Calm 10/23/23 19:14 nausea No 10/23/23 19:14 Vomiting No 10/23/23 19:14 Anesthesia Postop Eval I: Fluid Summary Crystalloid volume administer 800 10/23/23 19:14 (ml) Colloids volume administered ( ml) Blood Product volume administered (ml) Total IV fluid infused 800 10/23/23 19:14 Anesthesia Postop Eval I: Summary Notes Anesthesia Complication No 10/23/23 19:14 Anesthesia Complication Comment: Post-operative progress note Anesthesia: Postop Eval II Evaluation Mental status: Awake and Calm Pain Level: 1 nausea: No Vomiting: No Complications Anesthesia Complication: No
[2023-10-23] MEDS: Ondansetron 4 MG/2 ML Vial IV (19:52)
[2023-10-23] MEDS: proCHLORPERazine 10 MG/2 ML Vial 5 MG IV (21:08)
[2023-10-23] MEDS: Morphine 2 MG/ML Syringe IV (21:08)
[2023-10-24 00:18] VITALS: BP 113/67; PULSE 76; RESP 18; TEMP 36.6; O2SAT 98
[2023-10-24 05:33] VITALS: BP 112/76; PULSE 60; RESP 18; TEMP 36.5; O2SAT 98
--- NOTE | 2023-10-24 12:43 | DCINST_ITS ---
Discharge Instructions Diet Discharge Diet: No restrictions Activity Discharge Activity: Return to Normal Activity Weight Bearing Status: Full weight bearing Follow Up Care Test Results: Test results from this visit will be discussed in further detail at your follow- up appointment, if applicable. Discharge Plan Admission Admit Date/Time: 10/23/23 19:00 Primary Reason for Your Visit: Choledocholithiasis Attending Provider: Michael Hill Primary Care Provider: Vaibhav Carl Consulting Providers: Dennis Phillips Discharge Orders/Prescriptions Prescriptions: No Action NK Referrals / Follow Up: Vaibhav Carl MD [Primary Care Provider] - Prosper Kahn DO [Med Staff - Active Staff] - See Referral Note (In 2 to 3 weeks-call for an appointment) Disposition Disposition (needs filled in before D/C Order can be placed): Home, Self Care
--- NOTE | 2023-10-24 12:44 | PCM.DC.SUM ---
Providers Date of Admission: 10/23/23 Date of Discharge: 10/24/23 Primary Care Physician: Dr. Vaibhav Carl MD Consultations 10/22/23 21:34 Consult: Gastroenterology Routine Consulting Provider: [facility] Reason for Consult: abdominal pain. dilated CBD EMERGENT Consult: No MD Notified: Yes Date Notified: 10/22/23 Time Notified: 20:50 Method of Notification: ED Physician Initiated Reason For Visit: ABDOMINAL PAIN Diagnosis Discharge Diagnosis (1) Cholestatic jaundice: Status: Acute Code(s): R17 - Unspecified jaundice Plan 1. Choledocholithiasis #2 Common bile duct stricture #3 cholestatic liver enzyme elevations- Total clinical time spent by myself addressing the patient's medical issues, reviewing her data, and collaborating with patient's care team: 35 minutes Medications at Discharge Home Medications NK 10/22/23 Hospital Course Operations None and ERCP (With biliary sphincterotomy, placement of stent, and common bile duct and removal of choledocholithiasis) Procedures None Summary of Care Provided Minutes Spent on Discharge: 30 Hospital Course: This 53-year-old white female was seen in the emergency room at [facility] with complaints of generalized abdominal pain, workup in the emergency room included labs-patient's CBC was unremarkable, chemistry profile was abnormal for a AST of 99, ALT was 63, and BUN was 24. CTA of the chest abdomen and pelvis was performed-no acute findings were visualized in the chest abdomen or pelvis. Gallbladder ultrasound was performed which showed a dilated, bile duct at 1.6 cm, no other abnormalities were seen. Patient was admitted to [place] [address], she underwent an ERCP which showed the presence of choledocholithiasis and a common bile duct stricture, stent was placed and the common bile duct stones were removed, cells were sent for cytology and a biliary sphincterotomy was performed. On 10/24/2023, patient was seen and examined: On examination she appeared in good health and spirits, she does not appear to be in any distress. Vital signs as documented. Skin warm and dry and without overt rashes. Neck without JVD, thyroid appears normal, trachea is midline, neck is supple. Lungs clear, normal air movement was noted. Heart exam notable for regular rhythm, normal sounds and absence of murmurs, rubs or gallops. Abdomen unremarkable and without evidence of organomegaly, masses, or abdominal aortic enlargement, bowel sounds are present in all 4 quadrants, no abdominal tenderness was noted. Extremities nonedematous, no cyanosis was noted, no clubbing was noted. Neuro: Cranial nerves II through XII are grossly intact, no focal motor deficits were noted, sensation to light touch and pinprick is intact, motor exam 5/5 throughout. Psych: Patient is alert and oriented x3, she does not appear anxious or depressed, she does not appear agitated. Patient appears stable for discharge home on 10/24/2023, a CA 19-9 antigen was obtained prior to the patient being discharged that day. Weight / BMI Weight Weight: 93.4 kg Body Mass Index (BMI) 32.2 ABG / Lab / Microbiology Data 10/22/23 16:03 10/23/23 05:53 Radiography Diagnostic Testing: Radiology Impression Endo Retro Cholangiopancreatogram 10/23/23 18:23 IMPRESSION: Fluoroscopic guided ERCP with stent placement Electronically Signed: Abimael Guy MD at 22:52 EDT Reading Location ID and State: [facility] / [place] Tel , Service support , D/C Instructions Discharge Diet: No restrictions Weight Bearing Status: Full weight bearing Meaningful Use Info Meaningful Use Meaningful Use Diagnoses (Choose all that apply): None applicable Ischemic Stroke Statin Dosing Therapy Reference: STATIN DOSE THERAPY REFERENCE: * Patients > 75 years receive moderate or high dose statin therapy. * Patients 75 years or YOUNGER should receive HIGH intensity statin dose unless contraindicated. You will be required to document reason for non-treatment if statin daily dose does not meet guidelines. HIGH DOSE STATIN THERAPY DAILY Atorvastatin > than or = to 40 mg Rosuvastatin > than or = to 20 mg Amlodipine + Atorvastatin > than or = to 2.5/40 mg Ezetimibe + Simvastatin 10/80 mg Simvastatin 80mg Discharge Plan Admission Admit Date/Time: 10/23/23 19:00 Primary Reason for Your Visit: Choledocholithiasis Attending Provider: Michael Hill Primary Care Provider: Vaibhav Carl Consulting Providers: Dennis Phillips Discharge Orders/Prescriptions Prescriptions: No Action NK Referrals / Follow Up: Vaibhav Carl MD [Primary Care Provider] - Friend,Prosper, DO [Med Staff - Active Staff] - See Referral Note (In 2 to 3 weeks-call for an appointment) Disposition Disposition (needs filled in before D/C Order can be placed): Home, Self Care Charges/Coding Visit Charges Inpatient E&M: 54813 Disch Hosp
--- NOTE | 2023-10-24 13:00 | CASEMGMT ---
RN?CM?COPYRIGHT MANAGER?CM?to room to meet with patient for initial transition planning/care coordination?assessment.?RN?CM?introduced self and role at [facility].? Pt voices understanding and consents to?assessment?at this time.? Pt resting in bed in no distress at this time.? , [place], @ bedside. Pt is A/O at this time and answers all questions appropriately.?? Care providers, pharmacy, and demographics verified/updated at this time. Strata: 2 PCP: Dr Vaibhav Carl Specialists: none Preferred Pharmacy: [facility] Insurance: [employer] Prescription Benefit:?yes Living Will/HPOA:? Pt does not currently have LW/HCPOA and declines info at this time.? Pt made aware that she can contact as an out-pt and make appt in the future if she decides she would like to talk with someone about this or would like to utilize [facility] social work for advanced directive completion.? LNOK: Living Arrangements:Lives w/her in one-story home w/basement w/one step to enter. Independent. Transportation:?Pt states drives self and states no transportation concerns at this time.? also drives. DME: ? Denies using any DME and denies needs.? HHC/SNF: No hx of either. No needs identified. Pt wishes to return home and states has no concerns with going home. PLAN:??Home [place] MCKINLEYN?RN?CM
[2023-10-24 14:05] VITALS: BP 126/69; PULSE 79; RESP 18; TEMP 36.6; O2SAT 97
--- NOTE | 2023-10-24 17:01 | EX.PCM.PN.GI ---
Subjective Subjective Patient underwent ERCP yesterday for right upper quadrant pain, jaundice and cholestatic hepatitis. She was discovered to have a stricture along with choledocholithiasis that was removed. Stricture was biopsied and temporary stent was placed. Objective Data Objective Data Vital Signs: Vital Signs Temp Pulse Resp BP Pulse Ox O2 Del Method 97.8 F 79 18 126/69 H 97 Room Air 10/24/23 14:05 10/24/23 14:05 10/24/23 14:05 10/24/23 14:05 10/24/23 14:05 10/24/23 14:05 Oxygen Delivery Method Room Air Weight: 205 lb 14.588 oz Body Mass Index (BMI) 32.2 Intake & Output: Intake and Output for Last 24 Hours 10/22/23 10/23/23 10/24/23 23:59 23:59 23:59 Intake Total 1000 / 1150 150 / 150 1214.25 / 1214.25 Output Total 100 / 100 Balance 1000 / 1150 150 / 150 1114.25 / 1114.25 Lab / Micro Data 10/22/23 16:03 10/23/23 05:53 Radiography Diagnostic Testing: Radiology Impression Endo Retro Cholangiopancreatogram 10/23/23 18:23 IMPRESSION: Fluoroscopic guided ERCP with stent placement Electronically Signed: Abimael Guy MD at 22:52 EDT Reading Location ID and State: [facility] / [place] Tel , Service support , Physical Exam Const alert, oriented x3, no apparent distress and healthy appearing General Appearance: cooperative, well kempt and well developed Orientation / Consciousness: awake, oriented to person, oriented to place and oriented to time HEENT normocephalic, head/scalp atraumatic and moist oral mucous membranes Eyes PERRL, EOMs intact bilaterally and conjunctivae normal Neck supple, no JVD, thyroid normal and no carotid bruits General: trachea midline Resp normal respiratory effort and clear to auscultation bilaterally Auscultation: Negative for rales, rhonchi or wheezes Cardio regular rate, regular rhythm, S1 normal heart sound, S2 normal heart sound, no murmurs, no rub and no gallops GI normal to inspection, nondistended, normoactive bowel sounds, soft to palpation, non-tender and non-distended Extremity no clubbing, cyanosis or edema Skin no rashes or lesions noted General Skin Exam: no breakdown Neuro oriented x3, CN's II-XII intact bilaterally, moves all extremities, no focal motor deficits and no sensory deficits noted Sensorium / Orientation: awake and alert Speech: speech normal Psych affect normal Assessment & Plan Assessment/Plan (1) Abdominal pain: PLAN: Plan 1. Abdominal pain-resolved at this time, workup will continue including an ERCP, gastroenterology is participating in her care #2 dilated common bile duct-indicative of probable stone, again patient will undergo an ERCP, gastroenterology is participating in her care #3 cholestatic liver enzyme elevations-again this is probably secondary to bile duct obstruction which is either ongoing or has resolved Charges/Coding Visit Charges Inpatient E&M: 93417 Subs Hosp L3
[2023-10-25 04:08] LABS: Carbohydrate AG 19-9 25 U/mL (0-35)
== END 2023-10-24 14:04 | disposition home or self-care (01) | DRG 446 ==
LOC: ED 17:02 → MS3 10-23 00:12
PROVIDERS: Internal Medicine Gastroenterology; Emergency Provider Student in an Organized Health Care Education/Training Program; PCP Family Medicine; Visit Provider Internal Medicine
PROC: 0FC98ZZ Extirpation of Matter from Common Bile Duct, Via Natural or Artificial Opening Endoscopic (ICD-10-PCS; CPT 43260; principal; 2023-10-23 16:25)
DX: K80.51 Calculus of bile duct without cholangitis or cholecystitis with obstruction (principal); Z90.49 Acquired absence of other specified parts of digestive tract
CPT/HCPCS: 36415; 71275; 74174; 74330; 76000; 76705; 80048; 80053; 80076; 81025; 83690; 84484; 85025; 86301; 88108; 88161; 88305; 88313; 93005; 99284; J7120; Q9967; J2405

== ENCOUNTER → 2023-11-14 | Outpatient (CLI) | payer BC, SELFPAY ==
[2023-11-14 15:44] LABS: Absolute Lymphocyte Count 2.22 X10^3/uL (0.83-4.51); Absolute Neutrophil Count 2.2 X10^3/uL (2.0-7.7); Basophil# 0.04 X10^3/uL; Basophil% 0.8 % (0-1); Eosinophil# 0.06 X10^3/uL; Eosinophils% 1.3 % (0-5); Hematocrit 39.6 % (37-47); Hemoglobin 12.8 g/dL (12.0-15.0); Lymphocyte # 2.22 X10^3/ul (0.83-4.51); Lymphocyte % 46.4 % (19-41); Mean Corp Hgb Conc 32.3 g/dL (32-36); Mean Corpuscular Hgb 28.8 pg (27.0-32.0); Mean Corpuscular Volume 89.2 fL (81-99); Mean Platelet Vol. 11.6 fl (6.2-12.0); Monocyte# 0.27 X10^3/uL; Monocyte% 5.6 % (0-10); NRBC Flagged by Analyzer 0 % (0-5); Neutrophil # 2.18 X10^3/uL (2.7-7.7); Neutrophil % 45.7 % (47-70); Platelet Count 182 K/mm3 (150-450); RBC Distribution Width CV 13.3 % (11.6-14.6); RBC Distribution Width SD 43.6 fl (35.1-43.9); Red Blood Count 4.44 M/mm3 (4.2-5.4); White Blood Count 4.8 K/mm3 (4.4-11.0)
[2023-11-14 16:10] LABS: Erythrocyte Sedimentation Rate 16 mm/hr (0-30)
[2023-11-14 16:34] LABS: AST(SGOT) 21 U/L (15-37); Alanine Aminotransfer ALT/SGPT 31 U/L (13-56); Albumin, Serum 3.8 g/dL (3.2-5.0); Alkaline Phosphatase 103 U/L (45-117); Anion Gap 5 (5-15); BUN 24 mg/dL (7-18); BUN/Creat Ratio 33.7 RATIO (10-20); CRP < 2.90 mg/L (0.0-3.0); Chloride 108 mmol/L (98-107); Creatinine, Serum 0.71 mg/dL (0.55-1.02); EST Glomerular Filtration Rate 91 mL/min (>60); Est Glom Filt Rate - Afr Amer 110 mL/min (>60); Ferritin 122 ng/mL (8-252); Glucose 82 mg/dL (74-106); Iron 65 ug/dL (50-170); Iron Binding Capacity,Total 298 ug/dL (250-450); PERCENT IRON SATURATION 21.8 % (15.0-55.0); Potassium 3.5 mmol/L (3.5-5.1); Protein, Total 7.8 g/dL (6.4-8.2); Sodium Level 140 mmol/L (136-145)
[2023-11-16 14:09] LABS: Anti-Centromere B Ab <0.2 AI (0.0-0.9); Anti-Chromatin <0.2 AI (0.0-0.9); Anti-Jo <0.2 AI (0.0-0.9); Anti-Mitochondrial AB <20.0 Units (0.0-20.0); Anti-Scleroderma-70 AB <0.2 AI (0.0-0.9); Anti-dsDNA Ab <1 IU/mL (0-9); RNP Ab 0.2 AI (0.0-0.9); SJOGREN'S Anti-SS-A test < 0.2 AI (0.0-0.9); SJOGREN'S Anti-SS-B test < 0.2 AI (0.0-0.9); Smith Ab <0.2 AI (0.0-0.9)
[2023-11-20 08:11] LABS: Albumin 3.6 g/dL (2.9-4.4); Alpha-1-Globulins 0.3 g/dL (0.0-0.4); Alpha-2-Globulins 0.7 g/dL (0.4-1.0); Anti-Smooth Muscle ABS 5 Units (0-19); Cytoplasmic Ab (C-ANCA) <1:20 titer (Neg:<1:20); Deamidated Gliadin IgA 8 units (0-19); Deamidated Gliadin IgG 3 units (0-19); EBV Acute VCA IgM < 36.0 U/mL (0.0-35.9); Endomysial Antibody IgA Negative (Negative); Gamma Globulin 1.4 g/dL (0.4-1.8); HEPATITIS B SURFACE AG Negative (Negative); Hep C Antibodies Non Reactive (Non Reactive); Hepatitis A IgM Antibody Negative (Negative); Hepatitis B Core AB IgM Negative (Negative); IgG, Quant 1350 mg/dL (586-1602); Immunoglobulin A 230 mg/dL (87-352); Immunoglobulin G, Subclass 1 758 mg/dL (248-810); Immunoglobulin G, Subclass 2 294 mg/dL (130-555); Immunoglobulin G, Subclass 3 77 mg/dL (15-102); Immunoglobulin G, Subclass 4 29 mg/dL (2-96); Immunoglobulin M 145 mg/dL (26-217); PROEL- TOTAL PROTEIN 7.1 g/dL (6.0-8.5); Perinuclear Ab (P-ANCA) <1:20 titer (Neg:<1:20); t-Transglutaminase IgA <2 U/mL (0-3)
== END | disposition home or self-care (01) ==
LOC: LAB 15:07
PROVIDERS: PCP Family Medicine; Referring Provider Internal Medicine Gastroenterology; Visit Provider Internal Medicine Gastroenterology
DX: K75.89 Other specified inflammatory liver diseases (principal)
CPT/HCPCS: 36415; 80053; 80074; 82728; 82784; 82787; 83516; 83540; 83550; 84165; 85025; 85652; 86140; 86225; 86235; 86255; 86256; 86334; 86664; 86665

== ENCOUNTER 2024-01-01 13:42 | Day surgery (SDC) | payer BC, SELFPAY ==
[2024-01-01] VITALS (7 sets, daily range): BP systolic 112–123; BP diastolic 75–88; PULSE 61–74; RESP 16–18; TEMP 36.2–36.4; O2SAT 95–100; BMI 32.1
--- NOTE | 2024-01-01 | FLU_PTH ---
PATIENT: CHERYL STEARNS LOC: EN U#:[id number] AGE/SX: 53/F ROOM: RE01/01/[address]: Dr. Prosper Kahn DO : 1970 BED: DIS: 01/01/2024 SPEC #: [id number] RECD: 01/01/24 16:30 STATUS: ANITA JASON #: [id number] TALITA: 01/01/24 00:[address]: Prosper Kahn DEPT: CYTOLOGY RECD BY: Marc Chairez ENTERED: 01/02/24 13:00 SP TYPE: Fluid OTHR DR: Dr. Vaibhav Carl MD Tissues: Bile duct, NOS Procedures: Special Stain Group II Surgery Specimen Level III Surgery Specimen Level IV Cytospin Fluid HEADER OPERATION: ERCP with stent removal PRE-OP DIAGNOSIS: Cholestatic hepatitis TISSUE SUBMITTED: Biliary stent for cytology DIAGNOSIS CYTOLOGY Biliary stent fluid for cytology (cytospins and cellblock): Negative for malignant cells. See comment. AM. 01/03/2024 COMMENT The specimen is virtually acellular. Clinical correlation is suggested. CYTOLOGY STUDY Slides are reviewed. CYTOLOGY GROSS Received is 8cm black stent with 0.2 ml of yellow thick material labeled with the patient's name and and designated per the requisition as Biliary stent. Submitted for cytology preparation including cell block. Mr 01/02/2024 TC:5 CPT: 26980,01234
--- NOTE | 2024-01-01 14:35 | PCM.PRE.AN2 ---
ASA Classification* ASA Classification ASA Classification: 2 Assessment & Plan Anesthesia* Anesthesia Assessment Anesthesia Assessment: Discussed sedation and/or anesthesia options, risks, benefits, and alternatives with patient/parents/legal guardian/POA. Questions invited. The patient/parents/legal guardian/POA seems to understand and agrees to proceed with anesthesia plan. Reviewed the physical assessment, medical history, allergy history and patient home medications list prior to surgery/procedure/anesthetic and documented any changes. Performed airway and anesthesia risk assessments. Anesthesia Type Anesthesia Type: MAC (see written pre anesthesia record for full assessment) Anesthesia Focused Assessment* Temperature: 97.5 F Pulse Rate: 66 Blood Pressure: 115/88 Respiratory Rate: 16 Pulse Ox: 100 Airway Assessment Mouth opens: >3 cm Mallampati Score: II Focused Labs Anesthesia Preop lab: CBC WBC 4.8 K/mm3 (4.4-11.0) 11/14/23 15:15 RBC 4.44 M/mm3 (4.2-5.4) 11/14/23 15:15 Hgb 12.8 g/dL (12.0-15.0) 11/14/23 15:15 Hct 39.6 % (37-47) 11/14/23 15:15 Plt Count 182 K/mm3 (150-450) 11/14/23 15:15 CHEMISTRY Potassium 3.5 mmol/L (3.5-5.1) 11/14/23 15:15 Sodium 140 mmol/L (136-145) 11/14/23 15:15 BUN 24 mg/dL (7-18) H 11/14/23 15:15 Creatinine 0.71 mg/dL (0.55-1.02) 11/14/23 15:15 Glucose 82 mg/dL (74-106) 11/14/23 15:15 COAG Urine Test Negative Negative 10/23/23 11:45 Pre-Assessment Diagnosis/Proposed Procedure Planned Operative Procedure(s): endoscopic retrograde cholangiopancreatography with possible biopsy and possible sphincterotomy with stone removal Anesthesia History Anesthesia History - 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 When Was Last Pacemaker Check QUESTION #4 FULL TEXT: You/Your Family Experience fever (hyperthermia) with Anesthesia Last Oral Intake Last Oral intake: Last Oral Intake NPO since 21:00 01/01/24 14:04 Meds taken in AM with sips of water? Meds patient instructed to take am of surgery PONV PONV - employee training specialist: PONV - employee training specialist Female Yes 01/01/24 13:57 HX of Motion Sickness Yes 01/01/24 13:57 HX of N/V After Surgery Yes 01/01/24 13:57 Non-Smoker No 01/01/24 13:57 Duration of Surgery greater No 01/01/24 13:57 than 60 minutes Number of Risk Factors 3 01/01/24 13:57 PONV Score Moderate Risk 01/01/24 13:57 Height & Weight Height & Weight: Anesthesia: Height & Weight Height 5 ft 7 in 01/01/24 14:04 Weight: 93 kg 01/01/24 14:04 Body Mass Index (BMI) 32.1 01/01/24 14:04 Respiratory Assessment Respiratory Assessment - employee training specialist: Respiratory Tract Infection Hx - employee training specialist Hx Respiratory Tract Infection No 01/01/24 13:57 STOP Sleep Apnea STOP Sleep Apnea - employee training specialist: STOP Sleep Apnea - employee training specialist Hx Hypertension No 01/01/24 13:57 Hx Sleep Apnea No 01/01/24 13:57 CPAP BIPAP Do you snore loudly (louder No 01/01/24 13:57 than talking or can be heard Do you often feel tired/ No 01/01/24 13:57 fatigued/ sleepy during daytime? Has anyone observed you stop No 01/01/24 13:57 breathing during sleep? STOP Results Negative 01/01/24 13:57 QUESTION #5 FULL TEXT : Do you snore loudly (louder than talking or can be heard through closed doors)? Tobacco Use History Tobacco Use History - employee training specialist: Tobacco Use History - employee training specialist Tobacco Use Non-smoker 10/22/23 16:17 Smoking Status Never smoker 01/01/24 13:57 Hx Tobacco Use No 01/01/24 13:57 Years Smoking Packs Smoked per Day Smoking Cessation Date was within the last 15 years Hx Smoking Cessation Date Hx Smoking Cessation Counseling Hematologic Medial History Hematologic Hx - employee training specialist: Hematologic Medical Hx - warning analyst Hx of Blood Transfusion No 01/01/24 13:57 Hx of Transfusion in last 3 No 01/01/24 13:57 Months Date of Last Transfusion (if within last 3 months) Ever experience any problems No 01/01/24 13:57 with transfusion(s)? Specify any problems Hx of Preganancy in last 3 No 01/01/24 13:57 Months Nurse Filling Out Transfusion CPARSONS 01/01/24 13:57 & Questions: Date: 01/01/24 01/01/24 13:57 Time: 14:02 01/01/24 13:57 Patient unable to answer at this time (ie. confused, unrespo /Reproduction History /Reproductive History - employee training specialist: /Reproductive Hx- employee training specialist Hx Now No 01/01/24 13:57 Gestational Age (in weeks): EDC: Hx Hx Para Hx Section SAB PFSH Medical History Depression Non-smoker Cholestatic jaundice Abdominal pain Home Medications ?Medication ?Instructions ?Recorded ?Last Taken ?Type sertraline 25 mg tablet (Zoloft) 25 mg PO DAILY 01/01/24 12/31/23 History Allergy/AdvReac Type Severity Reaction Status Date / Time No Known Allergies Allergy Verified 01/01/24 13:55 Surgical History H/O prior ablation treatment Social History Smoking Status: Never smoker substance use type: marijuana Review of Systems (Anesthesia) ROS Narrative System reviewed and no additional complaints, except as documented.
--- NOTE | 2024-01-01 14:47 | HP.PCM_ITS ---
History and Physical Date of Admission: 01/01/24 CHERYL STEARNS, is a 53 F who presents to the office today for hospital follow up. [facility] ED abd pain 7.29.24 - 7.24 severe epigastric pain ERCP 10.23.23 A single localized biliary stricture was found in the lower third of the main bile duct. The stricture was indeterminate. The biliary system were markedly dilated, secondary to a stricture. The patient has had a cholecystectomy. Choledocholithiasis was found. Complete removal was accomplished by biliary sphincterotomy and balloon extraction. A biliary sphincterotomy was performed. The biliary tree was swept. Cells for cytology obtained in the lower third of the main duct. One temporary stent was placed into the common bile duct. *BGI established 8 pt reports that she is feeling well overall since hospitalization and denies GI symptoms of concern at this time. Pt reports that she is following up to schedule her stent removal. ROS Const Constitutional: No fatigue, fever(s) or weight change ENT ENT: No difficulty swallowing Gastro GI: No abdominal pain, belching, bloating, change in bowel habits, change in stool character, coffee ground emesis, constipation, cramping, diarrhea, heartburn, difficulty swallowing, feeling full early, excessive flatus, incontinent of stools, Vomiting blood/hematemesis, Blood in stool, loose stools, Black,tarry stools, nausea/dyspepsia, pain with swallowing, vomiting or other Musc Musculoskeletal: No joint pain Skin Skin: No yellowing of the eye or itchy eyes Psych Psychiatric: No anxiety and No depression Endo Endocrine: No fatigue or weight change Aller/Imm Allergy/Immunologic: No itchy eyes Pascual/Lymp Hematologic/Lymphatic: No easy bleeding or easy bruising Exam Const General: cooperative and comfortable Nutritional Appearance: average body habitus and well nourished [facility] Head: normal to inspection Ears: hearing grossly normal bilaterally Nose: external nose normal Face and sinus: normal facial exam Mouth: oral mucosae normal Throat: posterior oropharynx normal Eyes General: appearance normal, both eyes and all related structures Neck Neck: normal visual inspection Chest Chest palpation & inspection: normal inspection of the chest and normal palpation of entire chest wall Resp Effort & Inspection: normal respiratory effort Auscultation: Bilateral: Clear to Auscultation Cardio Palpation: normal PMI Rate: regular rate Rhythm: regular rhythm GI Inspection: normal to inspection Auscultation: normal bowel sounds Percussion: normal to percussion Palpation: no hepatosplenomegaly Skin General: no rashes or lesions noted Neuro General: patient alert Extrem General: normal to inspection Psych Affect: normal affect Assessment and Plan Assessment and Plan (1) Cholestatic hepatitis: Status: Acute Plan: 53-year-old presented to the hospital with worsening right upper quadrant pain. She was afebrile. She had no recent travel. She did not start any new medicines. In the ED she was seen by myself and determined to have cholestatic hepatitis with jaundice. Her AST was 1157, ALT of 1400, bilirubin 1.6, alkaline phosphatase of 300. She underwent imaging that showed dilated common bile duct along with possible choledocholithiasis. She underwent ERCP by myself as she was discovered to have bili stricture and multiple stones in her common bile duct. There were removed and a stent was placed temporarily. Because she had a stricture we joel a CA 19-9 which was within normal limits at 19. On her follow-up visit today she is not have any abdominal pain, cramping, chest pain or shortness of breath she is actually doing very well. We will draw labs for autoimmune hepatitis, acute viral hepatitis, hemochromatosis, celiac sprue. And we will schedule her for stent removal. I have examined the patient and the H&P has been reviewed. There are no clinical changes since date of exam.
--- NOTE | 2024-01-01 15:45 | RAD_ITS ---
Fluoroscopic-guided ERCP and stent removal INDICATION: Pain TECHNIQUE: Fluoroscopic guided ERCP was performed by attending ticket scheduler utilizing 46.7 seconds of fluoroscopic time. Radiation dose was 11.14 mgy FINDINGS: 6 fluoroscopic guided images were obtained in the anterior projection during the study to document findings during the procedure. For more complete information recommend correlation with procedural notes. RAD/ERCP Biliary/Pancreas IMPRESSION: Fluoroscopic-guided ERCP and stent removal Electronically Signed: Abimael Guy MD at 16:17 EDT ,
--- NOTE | 2024-01-01 16:10 | PCM.POST.ANE ---
Anesthesia: Postop Eval I Current Vital Signs Temperature: 97.1 F Pulse Rate: 72 Blood Pressure: 123/75 Respiratory Rate: 16 Pulse Ox: 95 Oxygen Delivery Method: Room Air Assessment Airway patent: Yes Spontaneous unlabored respirations: Yes Mental status: Awake and Calm nausea: No Vomiting: No Anesthesia Complication: No Fluid Hydration Crystalloid volume administer (ml): 20 Total IV fluid infused: 20 Progress Note Anesthesia document: Postop Eval 1 completed: Yes
--- NOTE | 2024-01-01 16:14 | OP.ERCP_ITS ---
Patient Name: Casi Sutherland Procedure Date: 01/01/2024 3:19 PM Date of : 1970 Age: 53 Procedure: ERCP Indications: Bile duct stone(s), Biliary stent removal Providers: Prosper Kahn DO Medicines: Monitored Anesthesia Care Patient Profile: This is a 53 year old female. Refer to note in patient chart for documentation of history and physical. Patient has symptoms of acute right upper quadrant abdominal pain. Her most recent ERCP for biliary evaluation, ERCP for stent and ERCP for stone removal was within the past three months. She is status post laparoscopic cholecystectomy. Complications: No immediate complications. Procedure: Pre-Anesthesia Assessment: - Prior to the procedure, a History and Physical was performed, and patient medications and allergies were reviewed. The patient is competent. The risks and benefits of the procedure and the sedation options and risks were discussed with the patient. All questions were answered and informed consent was obtained. Patient identification and proposed procedure were verified by the physician in the pre-procedure area. Mental Status Examination: alert and oriented. Airway Examination: normal oropharyngeal airway and neck mobility. Respiratory Examination: clear to auscultation. CV Examination: normal. Prophylactic Antibiotics: The patient does not require prophylactic antibiotics. Prior Anticoagulants: The patient has taken no anticoagulant or antiplatelet agents. ASA Grade Assessment: II - A patient with mild systemic disease. After reviewing the risks and benefits, the patient was deemed in satisfactory condition to undergo the procedure. The anesthesia plan was to use monitored anesthesia care (MAC). Immediately prior to administration of medications, the patient was re-assessed for adequacy to receive sedatives. The heart rate, respiratory rate, oxygen saturations, blood pressure, adequacy of pulmonary ventilation, and response to care were monitored throughout the procedure. The physical status of the patient was re-assessed after the procedure. After obtaining informed consent, the scope was passed under direct vision. Throughout the procedure, the patient's blood pressure, pulse, and oxygen saturations were monitored continuously. The Duodenoscope was introduced through the mouth, and advanced to the duodenum and used to inject contrast into the bile duct. The ERCP was accomplished without difficulty. The patient tolerated the procedure well. Scope In: 3:45:12 PM Scope Out: 3:58:12 PM Total Procedure Duration Time 0 hours 13 minutes 0 seconds Findings: The gluing machine adjuster film was normal. The esophagus was successfully intubated under direct vision. The scope was advanced to a normal major papilla in the descending duodenum without detailed examination of the pharynx, larynx and associated structures, and upper GI tract. The upper GI tract was grossly normal. A long 0.025 inch Jagwire was passed into the biliary tree. The short-nosed traction sphincterotome was passed over the guidewire and the bile duct was then deeply cannulated. Contrast was injected. I personally interpreted the bile duct images. There was brisk flow of contrast through the ducts. Image quality was adequate. Contrast extended to the entire biliary tree. Opacification of the entire biliary tree except for the gallbladder, main bile duct and entire biliary tree was successful. The maximum diameter of the ducts was 10 mm. The lower third of the main bile duct contained one stone, which was 6 mm in diameter. The lower third of the main bile duct and entire biliary tree were mildly dilated and segmentally dilated, with a stone causing an obstruction. The largest diameter was 10 mm. A 5 mm biliary sphincterotomy was made with a monofilament traction (standard) sphincterotome using ERBE electrocautery. There was no post-sphincterotomy bleeding. The biliary tree was swept with a 12 mm balloon starting at the bifurcation. One stone was removed. All stones remained. One stent was removed from the biliary tree using a snare and sent for cytology. The stent was found to be partially occluded via the water column test. Impression: - The lower third of the main bile duct and entire biliary tree were mildly dilated, with a stone causing an obstruction. - Choledocholithiasis was found. Removal was not accomplished; no stent was inserted. - A biliary sphincterotomy was performed. - The biliary tree was swept. - One stent was removed from the biliary tree. Procedure Code(s): --- Professional --- 63525, Endoscopic retrograde cholangiopancreatography (ERCP); with removal of foreign body(s) or stent(s) from biliary/pancreatic duct(s) 88782, Endoscopic retrograde cholangiopancreatography (ERCP); with removal of calculi/debris from biliary/pancreatic duct(s) 51137, Endoscopic retrograde cholangiopancreatography (ERCP); with sphincterotomy/papillotomy 27351, 26, Endoscopic catheterization of the biliary ductal system, radiological supervision and interpretation CPT copyright 2021 [employer]. All rights reserved. The codes documented in this report are preliminary and upon wet silk hanger review may be revised to meet current compliance requirements. Prosper Kahn DO 01/01/2024 4:13:42 PM This report has been signed electronically. Number of Addenda: 0 Note Initiated On: 01/01/2024 3:19 PM
--- NOTE | 2024-01-01 16:14 | OP.CCLET_ITS ---
01/01/2024 Vaibhav Carl Re : ERCP procedure for Casi Sutherland Dear Siddhartha This procedure was performed on Monday, January 01, 2024. My impressions and recommendations are as follows: Impressions : - The lower third of the main bile duct and entire biliary tree were mildly dilated, with a stone causing an obstruction. - Choledocholithiasis was found. Removal was not accomplished; no stent was inserted. - A biliary sphincterotomy was performed. - The biliary tree was swept. - One stent was removed from the biliary tree. Recommendations : My findings are described in the full procedure note, which is enclosed. If I can be of further assistance, please feel free to contact me at . Sincerely, Prosper Kahn, 01/01/2024 4:13:42 PM This report has been signed electronically.
--- NOTE | 2024-01-01 17:45 | POSTOPAN2_ITS ---
Anesthesia Postop Eval I Sum Postop Eval Completion status Anesthesia document: Postop Eval 1 completed: Yes Anesthesia Postop Eval I Summary Anesthesia Postop Eval I Summary: Anesthesia Postop Eval I: Assessment Summary Airway patent Yes 01/01/24 16:10 DATA MANAGEMENT.SKOBY Spontaneous unlabored Yes 01/01/24 16:10 DATA MANAGEMENT.UMA respirations Mental status Awake,Calm 01/01/24 16:10 DATA MANAGEMENT.SILVEROBGabriele nausea No 01/01/24 16:10 DATA MANAGEMENT.SILVEROBGabriele Vomiting No 01/01/24 16:10 DATA MANAGEMENT.SILVEROBGabriele Anesthesia Postop Eval I: Fluid Summary Crystalloid volume administer 20 01/01/24 16:10 DATA MANAGEMENT.SKOBY (ml) Colloids volume administered ( ml) Blood Product volume administered (ml) Total IV fluid infused 20 01/01/24 16:10 DATA MANAGEMENT.UMA Anesthesia Postop Eval I: Summary Notes Anesthesia Complication No 01/01/24 16:10 DATA MANAGEMENT.UMA Anesthesia Complication Comment: Post-operative progress note Anesthesia: Postop Eval II Evaluation Mental status: Awake and Calm Pain Level: 0 nausea: No Vomiting: No Complications Anesthesia Complication: No
--- NOTE | 2024-01-01 17:45 | PCM.POSTANE2 ---
Anesthesia Postop Eval I Sum Postop Eval Completion status Anesthesia document: Postop Eval 1 completed: Yes Anesthesia Postop Eval I Summary Anesthesia Postop Eval I Summary: Anesthesia Postop Eval I: Assessment Summary Airway patent Yes 01/01/24 16:10 COAL [email or web address].[email or web address] Spontaneous unlabored Yes 01/01/24 16:10 COAL CARRIER.UMA respirations Mental status Awake,Calm 01/01/24 16:10 COAL CARRIER.SILVEROBGabriele nausea No 01/01/24 16:10 COAL CARRIER.SILVEROBGabriele Vomiting No 01/01/24 16:10 COAL CARRIER.SILVEROBGabriele Anesthesia Postop Eval I: Fluid Summary Crystalloid volume administer 20 01/01/24 16:10 COAL CARRIER.SKOBY (ml) Colloids volume administered ( ml) Blood Product volume administered (ml) Total IV fluid infused 20 01/01/24 16:10 COAL CARRIER.UMA Anesthesia Postop Eval I: Summary Notes Anesthesia Complication No 01/01/24 16:10 COAL CARRIER.UMA Anesthesia Complication Comment: Post-operative progress note Anesthesia: Postop Eval II Evaluation Mental status: Awake and Calm Pain Level: 0 nausea: No Vomiting: No Complications Anesthesia Complication: No
== END 2024-01-01 17:04 | disposition home or self-care (01) ==
LOC: EN 13:49 → AC 13:49
PROVIDERS: PCP Family Medicine; Referring Provider Family Medicine; Visit Provider Internal Medicine Gastroenterology
PROC: (CPT 43260; principal; 2024-01-01 14:40)
DX: K80.51 Calculus of bile duct without cholangitis or cholecystitis with obstruction (principal); K83.8 Other specified diseases of biliary tract; Z90.49 Acquired absence of other specified parts of digestive tract; K75.89 Other specified inflammatory liver diseases
CPT/HCPCS: 43262; 43275; 43264; 74330; 76000; 88108; 88304; 88305; 88313; A4216; J2405